=== PATIENT | female | born 1950 | race Caucasian/White ===

== ENCOUNTER → 2024-07-16 17:50 | Outpatient (BNV) | payer MEDICARE, SELFPAY | PROVIDERS: Emergency Provider Emergency Medicine Emergency Medical Services; PCP Pediatrics; Visit Provider Radiology Vascular & Interventional Radiology | DX: R19.7 Diarrhea, unspecified (principal); R14.0 Abdominal distension (gaseous) | CPT/HCPCS: 74177 ==

== ENCOUNTER 2024-12-13 13:50 | Emergency (ER) | payer MEDICARE, SELFPAY ==
--- NOTE | ~2024-12-13 | US_ITS ---
CLINICAL HISTORY: Calf Tenderness; Pain Venous duplex ultrasound left lower extremity COMPARISON: None provided. FINDINGS: The visualized deep veins are fully compressible with normal Doppler color flow and spectral tracings. Left popliteal cyst measuring 1.3 x 1.8 x 0.6 cm. No surrounding hyperemia. IMPRESSION: 1. Negative for left lower extremity deep vein thrombosis. This document has been electronically signed by: Charles Yen MD on 12/13/2024 21:06:04
[2024-12-13 14:02] VITALS: BP 127/62; BP 163/77; PULSE 66; PULSE 74; RESP 16; TEMP 36.5; O2SAT 97; BMI 35.4
[2024-12-13 14:45] VITALS: BP 124/53; PULSE 59; RESP 18; TEMP 36.2; O2SAT 95
--- OUTSIDE RECORDS SUMMARY | 2024-12-13 15:25 | XMS_ITS | Data Portability ---
Author Organization [facility], Main Office Address [address] [place] [address] Care Team Providers Care Advertising Clerk Name Role Phone WON KELLY Primary Care Provider [phone] TAVIA SIMMONS Urologist MARLYN GONSALES Manager Of Change [phone] LEXX RAUSCH German Instructor GRAHAM LR Livestock Commission Agent DEMOND FRIEND Sugar Boiler [phone] NADINE PECK General Surgeon CHAYA HERNÁNDEZ Backend Developer [phone] [facility] Camp Housekeeper SLEEP MEDICINE SERVICES Sleep Medicine CLAUDE BANG General Surgeon JENNIFER MARTINEZ German Instructor ANTONIO BARRON Orthopedic Surgeon MAIKOL BROWNE Camp Housekeeper [phone] [facility] (MIKALA CHAUDHARI) Orthopedic Surgeon GRAHAM LR Electron Beam Photo Mask Technician EFREN CHIU Government Property Inspector Assessment Encounter Date Assessment Date Assessment LastModified by Organization Details LastModified Time 07/29/2024 07/29/2024 This service was provided using telemedicine. Patient consented to video & audio visit Patient was located in the [facility]. Provider was located in the office. No other persons participated in the telemedicine visit except for the patient unless otherwise indicated here. Total time of visit was 17 minutes. wisam Not available 07/29/2024 14:53:55 10/19/2024 10/19/2024 Cellulitis of ri ght upper extremity, likely secondary to arthropod bite -Start Linezolid 600 mg PO BID x 5 days -Selected due to history of C. difficile and multiple drug allergies -Effective coverage for gram-positive organisms (incl. MRSA/strep) -No renal dosing adjustment needed Labs ordered: -CBC with differential and platelets -CRP -ESR -Blood cultures (precautionary) -Tetanus booster not given, Wound was clean and closed -Last Td on 07/02/2018, within 5-year window for non-contaminated wounds Local care: -Borders of erythema outlined for progression tracking -May continue OTC Aloe -Advised patient to avoid topical corticosteroidson the affected area due to concern for local immunosuppressive effects, which may impair healing or worsen cellulitis. Follow-up: Reassess in 1 week or sooner if worsening (fever, expanding erythema, drainage) Patient reassured regarding antibiotic safety and C. diff risk mitigation; anxiety acknowledged and addressed taylor Not available 10/19/2024 17:46:44 Plan of Treatment Reminders Order Date Submit Date Provider Last Modified By Organization Details Last Modified Time Details Appointments [id number] 2024 11:00A M Won Kelly MD Not available Not available Not available Lab CBC w/ auto diff 2024 025 ANTHONY [facility] (Centralized Electronic Ordering - All Locations), Patient Can Go To The Location Of Their Choice, 10/26/2024 08:07:04 culture, blood 2024 025 ANTHONY [facility] (Centralized Electronic Ordering - All Locations), Patient Can Go To The Location Of Their Choice, 10/31/2024 10:05:35 C reactive protein, QN, serum or plasma 2024 025 ANTHONY [facility] (Centralized Electronic Ordering - All Locations), Patient Can Go To The Location Of Their Choice, 10/26/2024 08:07:05 ESR (erythroc yte sedimenta tion rate), blood 2024 025 ANTHONY [facility] (Centralized Electronic Ordering - All Locations), Patient Can Go To The Location Of Their Choice, 10/26/2024 08:07:05 PTH (parathyr oid hormone), intact, serum or plasma 2024 025 ANTHONY [facility] (Centralized Electronic Ordering - All Locations), Patient Can Go To The Location Of Their Choice, 10/18/2024 18:05:43 calcium, ionized, quant ISE, serum or plasma 2024 025 ANTHONY [facility] (Centralized Electronic Ordering - All Locations), Patient Can Go To The Location Of Their Choice, 10/18/2024 18:05:43 vitamin D, 25-hydrox y, total, serum 2024 025 ANTHONY [facility] (Centralized Electronic Ordering - All Locations), Patient Can Go To The Location Of Their Choice, 10/18/2024 18:05:42 CMP, serum or plasma 2024 025 ANTHONY [facility] (Centralized Electronic Ordering - All Locations), Patient Can Go To The Location Of Their Choice, 10/18/2024 18:05:40 urinalysi s, complete 2024 025 ANTHONY [facility] (Centralized Electronic Ordering - All Locations), Patient Can Go To The Location Of Their Choice, 10/18/2024 18:05:41 Referral food service team member & immunolog ist referral - please eval for [facility] and medicine allergies - thank you! 2024 ATHAKIKO Bansal MD, [address] [place] [address]. Allergy, [place], [address], 10/27/2024 13:16:30 Procedures None recorded. Surgeries None recorded. Imaging None recorded. Medication Orders linezolid 600 mg tablet 2024 [id number], [address], [place], [address], 10/31/2024 05:01:07 Patient TargetsNo targets recorded. Patient Instructions Encounter Date Encounter Id Patient Instructions Last Modified By Organization Details Last Modified Time 07/29/2024 [id number] Learning About Clostridioides Difficile (C. diff) Infection wisam Not available 07/29/2024 14:54:12 [facility] follow [facility] visit, all current and discharge medications (OTC, herbal therapies, supplements) reviewed and reconciled with patient and or caregiver, including potential side effects, drug interactions, instructions, and the consequences of not taking medication. Reviewed potential barriers to medication adherence, such as side effects from medication or cost of medication. [email or web address] Not available 07/29/2024 14:22:33 08/15/2024 [id number] low residue diet awychowski Not availab le 08/15/2024 11:28:24 hypercalcemia: care instructions awychowski Not available 08/15/2024 11:28:24 high cholesterol : care instructions awychowski Not available 08/15/2024 11:28:24 high blood pressure: care instructions awychowski Not available 08/15/2024 11:28:24 learning about high blood pressure awychowski Not available 08/15/2024 11:28:24 10/27/2024 [id number] Patient will follow up and keep appointment as scheduled. 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 Referring Physician: Mohit Sellers, Internal Medicine, Encounter Date: 10/27/2024 Results Created Date Observation Date Name Description Value Unit Range Abnormal Flag Note LastModifiedBy Organization Detail LastModifiedTime 10/18/19 25 10/18/2024 COMP. METAB OLIC PANEL (14) glucose 92 mg/dL 70-99 normal Not Available [facility] ([facility]) [address] [place], [address], 10/18/2024 18:05:40 10/18/19 25 10/18/2024 COMP. METAB OLIC PANEL (14) BUN 15 mg/dL 8-27 normal Not Available [facility] ([facility]) [address] [place], [address], 10/18/2024 18:05:40 10/18/19 25 10/18/2024 COMP. METAB OLIC PANEL (14) creatinine 1.02 mg/dL 0.57-1 .00 above high normal Not Available [facility] ([facility]) [address] [place], [address], 10/18/2024 18:05:40 10/18/19 25 10/18/2024 COMP. METAB OLIC PANEL (14) eGFR 57 mL/mi n/1.7 3 >59 below low normal Not Available [facility] ([facility]) [address] [place], [address], 10/18/2024 18:05:40 10/18/19 25 10/18/2024 COMP. METAB OLIC PANEL (14) BUN/creatini ne ratio 15 12-28 normal Not Available [facility] ([facility]) [address] [place], [address], 10/18/2024 18:05:40 10/18/19 25 10/18/2024 COMP. METAB OLIC PANEL (14) sodium 143 mmol/ L 134-14 4 normal Not Available [facility] ([facility]) [address] [place], [address], 10/18/2024 18:05:40 10/18/19 25 10/18/2024 COMP. METAB OLIC PANEL (14) potassium 4.6 mmol/ L 3.5-5. 2 normal Not Available [facility] ([facility]) [address] [place], [address], 10/18/2024 18:05:40 10/18/19 25 10/18/2024 COMP. METAB OLIC PANEL (14) chloride 106 mmol/ L 96-106 normal Not Available [facility] ([facility]) [address] [place], [address], 10/18/2024 18:05:40 10/18/19 25 10/18/2024 COMP. METAB OLIC PANEL (14) carbon dioxide, total 20 mmol/ L 20-29 normal Not Available [facility] ([facility]) [address] [place], [address], 10/18/2024 18:05:40 10/18/19 25 10/18/2024 COMP. METAB OLIC PANEL (14) calcium 10.9 mg/dL 8.7-10 .3 above high normal Not Available [facility] ([facility]) [address] [place], [address], 10/18/2024 18:05:40 10/18/19 25 10/18/2024 COMP. METAB OLIC PANEL (14) protein, total 6.4 g/dL 6.0-8. 5 normal Not Available [facility] ([facility] [address] [place], [address], 10/18/2024 18:05:40 10/18/19 25 10/18/2024 COMP. METAB OLIC PANEL (14) albumin 4.3 g/dL 3.8-4. 8 normal Not Available [facility] ([facility]) [address] [place], [address], 10/18/2024 18:05:40 10/18/19 25 10/18/2024 COMP. METAB OLIC PANEL (14) globulin, total 2.1 g/dL 1.5-4. 5 Not Available [facility] ([facility]) [address] [place], [address], 10/18/2024 18:05:40 10/18/19 25 10/18/2024 COMP. METAB OLIC PANEL (14) bilirubin, total 0.6 mg/dL 0.0-1. 2 normal Not Available [facility] ([facility]) [address] [place], [address], 10/18/2024 18:05:40 05/19/20 25 10/18/2024 COMP. METAB OLIC PANEL (14) alkaline phosphatase 78 IU/L 44-121 normal Not Available [facility]) [address] [place], [address], 10/18/2024 18:05:40 10/18/19 25 10/18/2024 COMP. METAB OLIC PANEL (14) AST (SGOT) 17 IU/L 0-40 normal Not Available [facility] ([facility]) [address] [place], [address], 10/18/2024 18:05:40 10/18/19 25 10/18/2024 COMP. METAB OLIC PANEL (14) ALT (SGPT) 15 IU/L 0-32 normal Not Available [facility] ([facility]) [address] [place], [address], 10/18/2024 18:05:40 10/18/19 25 10/17/2024 URINA LYSIS , COMPL ETE specific gravity 1.009 1.005- 1.030 normal Not Available [facility] ([facility]) [address] [place], [address], 10/18/2024 18:05:41 10/18/19 25 10/17/2024 URINA LYSIS , COMPL ETE pH 6.5 5.0-7. 5 normal Not Available [facility] ([facility]) [address] [place], [address], 10/18/2024 18:05:41 10/18/19 25 10/17/2024 URINA LYSIS , COMPL ETE urine-color YELLOW yellow Not Available [facility] ([facility]) [address] [place], [address], 10/18/2024 18:05:41 10/18/19 25 10/17/2024 URINA LYSIS , COMPL ETE appearance CLEAR clear Not Available [facility] ([facility]) [address] [place], [address], 10/18/2024 18:05:41 10/18/19 25 10/17/2024 URINA LYSIS , COMPL ETE WBC esterase 1+ negati ve abnormal Not Available [facility] ([facility]) [address] [place], [address], 10/18/2024 18:05:41 10/18/19 25 10/17/2024 URINA LYSIS , COMPL ETE protein NEGATI VE negati ve/tra ce Not Available [facility] ([facility]) [address] [place], [address], 10/18/2024 18:05:41 10/18/19 25 10/17/2024 URINA LYSIS , COMPL ETE glucose NEGATI VE negati ve Not Available [facility] ([facility]) [address] [place], [address], 10/18/2024 18:05:41 10/18/19 25 10/17/2024 URINA LYSIS , COMPL ETE ketones NEGATI VE negati ve Not Available [facility] ([facility]) [address] [place], [address], 10/18/2024 18:05:41 10/18/19 25 10/17/2024 URINA LYSIS , COMPL ETE occult blood NEGATI VE negati ve Not Available [facility] ([facility]) [address] [place], [address], 10/18/2024 18:05:41 10/18/19 25 10/17/2024 URINA LYSIS , COMPL ETE bilirubin NEGATI VE negati ve Not Available [facility] ([facility]) [address] [place], [address], 10/18/2024 18:05:41 10/18/19 25 10/17/2024 URINA LYSIS , COMPL ETE urobilinogen ,semi-qn 0.2 mg/dL 0.2-1. 0 normal Not Available [facility] ([facility]) [address] [place], [address], 10/18/2024 18:05:41 10/18/19 25 10/17/2024 URINA LYSIS , COMPL ETE nitrite, urine NEGATI VE negati ve Not Available [facility] ([facility]) [address] [place], [address], 10/18/2024 18:05:41 10/18/19 25 10/17/2024 URINA LYSIS , COMPL ETE microscopic examination SEE BELOW: Micro scopi c was indic ated and was perfo rmed. Not Available [facility] ([facility]) [address] 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) [address] [place], [address], 10/18/2024 18:05:41 10/18/19 25 10/18/2024 URINA LYSIS , COMPL ETE WBC 0-5 /hpf 0 - 5 Not Available [facility] ([facility]) [address] [place], [address], 10/18/2024 18:05:41 10/18/19 25 10/18/2024 URINA LYSIS , COMPL ETE RBC NONE SEEN /hpf 0 - 2 Not Available [facility] ([facility]) [address] [place], [address], 10/18/2024 18:05:41 10/18/19 25 10/18/2024 URINA LYSIS , COMPL ETE epithelial cells (non renal) 0-10 /hpf 0 - 10 Not Available [facility] (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) [address] [facility], [place], [address], 10/18/2024 18:05:41 10/18/19 25 10/18/2024 URINA LYSIS , COMPL ETE casts NONE SEEN /lpf none seen Not Available [facility] ([facility]) [address] 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) [address] 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) [address] 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 [address] 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) [address] [facility], [place], [address], 10/18/2024 18:05:41 10/18/19 25 10/18/2024 URINA LYSIS , COMPL ETE bacteria NONE SEEN none seen/f ew Not Available [facility] ([facility]) [address] 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) [address] [place], [address], 10/18/2024 18:05:41 10/18/19 25 10/18/2024 VITAM IN D, 25-HY DROXY vitamin D, 25-hydroxy 20.7 NG/mL 30.0-1 00.0 below low normal Vitam in D defic iency has been defin ed by the Insti tute of Medic ine and an Endoc rine Socie ty pract ice guide line as a level of serum 25-OH vitam in D less than 20 ng/mL (1,2) . The Endoc rine Socie ty went on to [facility] er defin e vitam in D insuf ficie ncy as a level betwe en 21 and 29 ng/mL (2). 1. IOM (Inst itute of Medic ine). 2009. Dieta ry refer ence intak es for calci um and D. Risa cooper [place]: The [facility] . 2. Jignesh polanco MF, Chavez santiago [place], Luis Daniel off-F errar i CABRAL, et al. Evalu ation , treat ment, and preve ntion of vitam in D defic iency : an Endoc rine Socie ty clini caprice pract ice guide line. JCEM. 2010; 96(7) :1911 -30. Not Available [facility] ([facility]) [address] [place], [address], 10/18/2024 18:05:42 10/18/19 25 10/18/2024 CALCI UM, IONIZ ED, SERUM calcium, ionized, serum 5.8 mg/dL 4.5-5. 6 above high normal Not Available [facility] ([facility]) [address] [place], [address], 10/18/2024 18:05:43 10/18/19 25 10/18/2024 PTH, INTAC T PTH, intact 77 pg/mL 15-65 above high normal Not Available [facility] ([facility]) [address] [place], [address], 10/18/2024 18:05:43 10/26/19 25 10/26/2024 CBC WITH DIFFE RENTI AL/PL ATELE T WBC 5.2 x10e3 /uL 3.4-10 .8 normal Not Available [facility] ([facility]) [address] [place], [address], 10/26/2024 08:07:04 10/26/19 25 10/26/2024 CBC WITH DIFFE RENTI AL/PL ATELE T RBC 3.77 x10e6 /uL 3.77-5 .28 normal Not Available [facility] ([facility]) [address] [place], [address], 10/26/2024 08:07:04 10/26/19 25 10/26/2024 CBC WITH DIFFE RENTI AL/PL ATELE T hemoglobin 11.6 g/dL 11.1-1 5.9 normal Not Available [facility] ([facility]) [address] [place], [address], 10/26/2024 08:07:04 10/26/19 25 10/26/2024 CBC WITH DIFFE RENTI AL/PL ATELE T hematocrit 34.8 % 34.0-4 6.6 normal Not Available [facility] ([facility]) [address] [facility], [place], [address], 10/26/2024 08:07:04 10/26/1910/26/2024 CBC WITH DIFFE RENTI AL/PL ATELE T MCV 92 fL 79-97 normal Not Available [facility] ([facility]) [address] [facility], [place], [address], 10/26/2024 08:07:04 10/26/1910/26/2024 CBC WITH DIFFE RENTI AL/PL ATELE T MCH 30.8 pg 26.6-3 3.0 normal Not Available [facility] ([facility]) [address] [facility], [place], [address], 10/26/2024 08:07:04 10/26/1910/26/2024 CBC WITH DIFFE RENTI AL/PL ATELE T MCHC 33.3 g/dL 31.5-3 5.7 normal Not Available [facility] ([facility]) [address] [facility], [place], [address], 10/26/2024 08:07:04 10/26/1910/26/2024 CBC WITH DIFFE RENTI AL/PL ATELE T RDW 12.5 % 11.7-1 5.4 Not Available [facility] ([facility]) [address] [place], [address], 10/26/2024 08:07:04 10/26/1910/26/2024 CBC WITH DIFFE RENTI AL/PL ATELE T platelets 268 x10e3 /uL 150-45 0 normal Not Available [facility] ([facility]) [address] [place], [address], 10/26/2024 08:07:04 10/26/1910/26/2024 CBC WITH DIFFE RENTI AL/PL ATELE T neutrophils 72 % not estab. normal Not Available [facility] ([facility]) [address] [place], [address], 10/26/2024 08:07:04 10/26/19 25 10/26/2024 CBC WITH DIFFE RENTI AL/PL ATELE T lymphs 20 % not estab. normal Not Available [facility] ([facility]) [address] [facility], [place], [address], 10/26/2024 08:07:04 10/26/19 25 10/26/2024 CBC WITH DIFFE RENTI AL/PL ATELE T monocytes 6 % not estab. normal Not Available [facility] ([facility]) [address] [facility], [place], [address], 10/26/2024 08:07:04 10/26/19 25 10/26/2024 CBC WITH DIFFE RENTI AL/PL ATELE T eos 1 % not estab. normal Not Available [facility] ([facility]) [address] [facility], [place], [address], 10/26/2024 08:07:04 10/26/19 25 10/26/2024 CBC WITH DIFFE RENTI AL/PL ATELE T basos 1 % not estab. normal Not Available [facility] ([facility]) [address] 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) [address] [facility], [place], [address], 10/26/2024 08:07:04 10/26/1910/26/2024 CBC WITH DIFFE RENTI AL/PL ATELE T neutrophils (absolute) 3.8 x10e3 /uL 1.4-7. 0 normal Not Available [facility] ([facility]) [address] [place], [address], 10/26/2024 08:07:04 10/26/19 25 10/26/2024 CBC WITH DIFFE RENTI AL/PL ATELE T lymphs (absolute) 1.0 x10e3 /uL 0.7-3. 1 normal Not Available [facility] ([facility]) [address] [facility], [place], [address], 10/26/2024 08:07:04 10/26/19 25 10/26/2024 CBC WITH DIFFE RENTI AL/PL ATELE T monocytes(ab solute) 0.3 x10e3 /uL 0.1-0. 9 normal Not Available [facility] ([facility]) [address] [place], [address], 10/26/2024 08:07:04 10/26/19 25 10/26/2024 CBC WITH DIFFE RENTI AL/PL ATELE T eos (absolute) 0.0 x10e3 /uL 0.0-0. 4 normal Not Available [facility] ([facility]) [address] [facility], [place], [address], 10/26/2024 08:07:04 10/26/19 25 10/26/2024 CBC WITH DIFFE RENTI AL/PL ATELE T baso (absolute) 0.0 x10e3 /uL 0.0-0. 2 normal Not Available [facility] ([facility]) [address] [place], [address], 10/26/2024 08:07:04 10/26/1910/26/2024 CBC WITH DIFFE RENTI AL/PL ATELE T immature granulocytes 0 % not estab. Not Available [facility] ([facility]) [address] [place], [address], 10/26/2024 08:07:04 10/26/19 25 10/26/2024 CBC WITH DIFFE RENTI AL/PL ATELE T immature grans (abs) 0.0 x10e3 /uL 0.0-0. 1 Not Available [facility] ([facility]) [address] 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) [address] 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) [address] [facility], [place], [address], 10/26/2024 08:07:04 10/26/19 25 10/26/2024 SEDIM ENTAT ION RATE- WESTE RGREN sedimentatio n rate-westerg desiree 12 mm/HR 0-40 normal Not Available [facility] ([facility]) [address] [facility], [place], [address], 10/26/2024 08:07:05 10/26/19 25 10/26/2024 C-DORA CTIVE PROTE IN, QUANT C-reactive protein, quant 3 mg/L 0-10 normal Not Available [facility] ([facility]) [address] [facility], [place], [address], 10/26/2024 08:07:05 10/26/19 25 10/31/2024 BLOOD CULTU SELENA ROA blood culture, routine Final report Not Available [facility] ([facility]) [address] [facility], [place], [address], 10/31/2024 10:05:35 10/26/19 25 10/31/2024 BLOOD CULTU SELENA ROA result 1 COMMEN T No aerob ic or anaer obic growt h in five days. Not Available [facility] ([facility]) [address] [facility], [place], [address], 10/31/2024 10:05:35 07/16/19 25 07/16/2024 CT, abdom en + pelvi s, w/ contr ast No observ ation record ed. wisam [facility] (Medical Records) [address] [place], [address], 07/18/2024 13:00:13 07/16/19 25 07/16/2024 CT, abdom en + pelvi s, w/ contr ast No observ ation record ed. [facility] (Medical Records) [address] [place], [address], 07/23/2024 14:17:58 Result Notes None recorded. Problems Name Problem SNOMED Code Status Onset Date Resolution Date Notes Provider Name and Address Organization Details Recorded Time Patient status finding [id number] Completed 201201/09/2014 RECORDED 10/28/19 13 11:22AM BY DANNA WEBBER MA, ANNOTATI ON/PATRICK Kelly MD [address] [facility] [address], [place], [phone] , [facility] 6 17:10:55 Constipa tion [id number] Completed 201307/05/2019 Won Kelly MD [address] [facility] [address], [place], [phone] , [facility] 0 13:39:59 Epistaxi s Completed 201201/09/2014 RECORDED 10/28/19 13 11:22AM BY DANNA WEBBER MA, CIELO ON/PATRICK Kelly MD [address] [facility] [address], [place], [phone] , [facility] 6 17:10:55 Adult health examinat ion Completed 201201/09/2014 IMPRESSI ON: IMMUNIZA TION STATUS UT SHORT OF INFLUENZ A WHICH PT DECLINES . SCREENIN G IS CURRENT BASED ON RISK FACTORS. [facility] USE ADVISED. DISTRACT ED DRIVING TONYE Mary; RECORDED 07/20/19 13 2:13PM BY DANNA WEBBER MA, ANNOTATI ON/PATRICK Kelly MD [address] [facility] [address], [place], [address] , [facility] 6 17:10:55 Laborato ry procedur e performe d [id number] Completed 201201/09/2014 RECORDED 05/11/20 13 9:58AM BY DANNA WEBBER MA, ANNOTCHAMP ON/ADDEN DUM Won Kelly MD [address] [address], [place], [address] , [facility] 6 17:10:55 Screenin g for malignan t neoplasm of breast Completed 201201/09/2014 RECORDED 10/28/19 13 11:22AM BY DANNA WEBBER MA, CIELO ON/PATRICK DUM Won Kelly MD [address] [address], [place], [address] , [facility] 6 17:10:55 Infectio mononucl eosis [id number] Completed 201201/09/2014 RECORDED 10/28/19 13 11:22AM BY DANNA WEBBER MA, CIELO ON/PATRICK Kelly MD [address] [address], [place], [address] , [facility] 6 17:10:55 Immuniza tion refused Completed 201301/09/2014 RECORDED 09/13/19 14 10:02AM BY DANNA WEBBER MA, CIELO ON/PATRICK Kelly MD [address] [address], [place], [address] , [facility] 6 17:10:55 Active or passive immuniza tion Completed 201301/09/2014 RECORDED 09/13/19 14 10:50AM BY WON Kwong MD, OFFICE VISIT Won Kelly MD [address], [place], [address] , [facility] 6 17:10:55 Hernia of anterior abdomina l wall 460913270 Completed 201306/05/2016 Removal Reason: s/p surgery Won Kelly MD [address], [place], [address] , [facility] 7 10:47:16 Administ ration of viral vaccine Completed 201301/09/2014 RECORDED 09/13/19 14 10:02AM BY DANNA WEBBER MA, ANNOTATI ON/ADDEN DUM Won Kelly MD [address], [place], [address] , [facility] 6 17:10:55 Arthropa thy 125950771 Completed 201307/02/2018 Won Kelly MD [address], [place], [address] , [facility] 9 11:00:14 Patient status finding [id number] Completed 201212/13/2013 RECORDED 10/28/19 13 11:22AM BY DANNA WEBBER MA, ANNOTATI ON/ADDEN DUM Won Kelly MD [address], [place], [address] , [facility] 6 17:10:55 Backache 194855981 Active 2013 KANDY Go [facility] 3 10:21:28 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 Active 2013 STORY: ADENOMA- XENA KANDY Go [facility] 3 10:21:29 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 SCREENIN G IS CURRENT BASED ON RISK FACTORS. REGULAR DENTAL CARE AND SEATBELT USE ADVISED. DISTRACT ED DRIVING DISCUSSLudivina DBrigitte; RECORDED 07/20/19 13 2:13PM BY DANNA WEBBER MA, ANNOTATI ON/PATRICK Kelly MD [address], [place], [address] , [facility] 6 17:10:55 Gastroes ophageal reflux disease 743147110 Active 2013 KANDY Go, [facility] 3 10:21:28 Headache 89029401 Completed 201307/02/2018 Won Kelly MD [address], [place], [address] , [facility] 9 10:59:43 Pure hypercho lesterol emia 952459654 Active 2013 Not Available [facility] 17:47:40 Hyperpar athyroid ism 84212576 Active 2013 Not Available [facility] 1 17:47:40 Essentia l hyperten zulema 68551680 Active 2013 Not Available [facility] 1 17:47:40 Demarcus l hyperten zulema 37148029 Completed 201212/13/2013 IMPRESSI ON: FINALLY WELL CONTROLL ED AND REGIMEN IS WELL TOLERATE D. WILL CONTINUE .; RECORDED 10/28/19 13 11:22AM BY DANNA WEBBER MA, DORETHAATI ON/ADDEN DUM Won Kelly MD [address], [place], [address] , [facility] 7 10:47:03 Laborato ry procedur e performe d [id number] Completed 201212/13/2013 RECORDED 05/11/20 13 9:58AM BY DANNA WEBBER MA, ANNOTATI ON/PATRICK DUM Won Kelly MD [address] [facility] [address], [place], [address] , [facility] 6 17:10:55 Screenin g for malignan t neoplasm of breast Completed 201212/13/2013 RECORDED 10/28/19 13 11:22AM BY DANNA WEBBER MA, CIELO ON/PATRICK DUM Won Kelly MD [address] [facility] [address], [place], [address] , [facility] 6 17:10:55 Infectio mononucl eosis 278168388 Completed 201212/13/2013 RECORDED 10/28/19 13 11:22AM BY DANNA WEBBER MA, ANNOTATI ON/ADDEN DUM Won Kelly MD [address] [facility] [address], [place], [address] , [facility] 6 17:10:55 Patient status finding [id number] Completed 201311/20/2014 RECORDED 09/13/19 14 10:10AM BY DANNA WEBBER MA, OFFICE VISIT Won Kelly MD [address] [address], [place], [address] , [facility] 6 17:10:55 Obesity 223290298 Completed 201306/05/2016 IMPRESSI ON: PT UNDERSTA NDS POTENTIA L BELL HOLE DIGGER HEALTH CONSEQUE NCES. NEEDS TO INCREASE PHYSICAL ACTIVITY AND EAT HEALTHIE R. WILL FOLLOW.; RECORDED 09/13/19 14 10:06AM BY DANNA WEBBER MA, OFFICE VISIT Won Kelly MD [address] [address], [place], [address] , [facility] 7 10:44:36 Obstruct stephanie sleep apnea syndrome 04667148 Active [address] [place] [facility] 3 10:21:29 Immuniza tion refused Completed 201312/13/2013 RECORDED 09/13/19 14 10:02AM BY DANNA WEBBER MA, ANNOTATI ON/PATRICK Kelly MD [address] [address], [place], [address] , [facility] 6 17:10:55 Active or passive immuniza tion Completed 201312/13/2013 RECORDED 09/13/19 14 10:50AM BY WON Kwong MD, OFFICE VISIT Won Kelly MD [address] [address], [place], [address] , [facility] 6 17:10:55 Vitamin D deficien cy 49427028 Active 2013 Not Available [facility] 1 17:47:40 Administ ration of viral vaccine Completed 201312/13/2013 RECORDED 09/13/19 14 10:02AM BY ADNNA WEBBER MA, ANNOTATI ON/ADDCHANTE Kelly MD [address] [address], [place], [address] , [facility] 6 17:10:55 Body mass index 30+ - obesity 370180566 Completed 11/20/2014 Won Kelly MD [address], [place], [address] , [facility] 6 17:10:55 Mensamantha sorto present 694295827 Completed 11/20/2014 Won Kelly MD [address], [place], [address] , [facility] 6 17:10:55 Chronic depressi on 757480205 Completed 07/23/2020 Won Kelly MD [address] [facility] [address], [place], [address] , [facility] 1 09:53:09 Sinusiti s 39668070 Completed 11/20/2014 Won Kelly MD [address] [facility] [address], [place], [address] , [facility] 6 17:10:55 Knee pain Completed 07/01/2017 Won Kelly MD [address], [place], [address] , [facility] 8 10:33:04 Osteoart hritis 997685844 Active KANDY Go, [facility] 3 10:21:28 Increase d frequenc y of urinatio n 991774594 Completed 01/12/2019 KANDY Wynne, [facility] 9 10:54:37 Pyuria 9185026 Completed 06/05/2016 Won Kelly MD [address] [facility] [address], [place], [address] , [facility] 7 10:44:43 Albuminu rekha 310122427 Completed 07/01/2017 Won Kelly MD [address] [facility] [address], [place], [address] , [facility] 8 10:34:48 Degenera tion of lumbar interver tebral disc 12120954 Active 2015 mod/kyle re L2/L3, L4/L5 KANDY Go, [facility] 3 10:21:28 Osteoart hritis of knee 682435019 Active 2015 mod/kyle re KANDY Go, [facility] 3 10:21:28 Disorder of patellof emoral joint 426665237 Active KANDY Go, [facility] 3 10:21:28 Kidney stone 29693657 Active 2016 Not Available [facility] 1 17:47:40 Divertic ular disease 953307018 Active 2016 KANDY Go, [facility] 3 10:21:28 Pyelonep hritis 11985084 Completed 201707/02/2018 Won Kelly MD [address], [place], [address] , [facility] 9 10:59:01 Hydronep hrosis 10174923 Completed 201707/02/2018 Won Kelly MD [address] [address], [place], [address] , [facility] 9 10:59:06 Diastoli c dysfunct ion 6468395 Active 2017 Not Available [facility] 1 17:47:40 Aortic valve regurgit ation 94370421 Active 2017 KANDY Go, [facility] 3 10:21:29 Mitral valve regurgit ation 38862712 Active 2017 KANDY Go, [facility] 3 10:21:29 History of total hysterec aretha 742254854 Active RevaKANDY Campbell, [facility] 3 10:21:28 Lumbar spondylo sis 183773005 Active 2017 KANDY Go, [facility] 3 10:21:28 Lactose intolera nce Active KANDY Go, [facility] 3 10:21:28 Abnormal liver function 56756889 Active 2018 RevaKANDY Bailey, [facility] 3 10:21:29 Hypercal cemia 20535770 Active 2018 [facility] Available [facility] 1 17:47:40 Divertic ulitis 855360999 Completed 201804/12/2024 Won Kelly MD [address] [address], [place], [address] [facility] 4 11:22:34 Suspecte d bilatera l glaucoma 01375135525 087545 Active 2018 KANDY Go, [facility] 3 10:21:28 Excess skin of bilatera l eyelids 10027438760 630738 Active 2018 KANDY Go [facility] 3 10:21:28 Recurren t major depressi on in partial remissio n 82718747 Active 2019 KANDY Go [facility] 3 10:21:28 Synovial cyst of knee 164812769 Active 2019 KANDY Go [facility] 3 10:21:28 History of noncompl iance with medicati on regimen 957683658 Active 2019 KANDY Go, [facility] 3 10:21:29 Chronic kidney disease stage 2 257386215 Completed 202009/27/2020 KANDY Go, [facility] 3 10:21:29 Osteopor osis 21067250 Completed 202002/04/2023 Won Kelly MD [address] [address], [place], [address] , [facility] 3 09:31:10 Irritabl e bowel syndrome 32528486 Active 2021 KANDY Go, [facility] 3 10:21:28 Non-heal ing pigmente d skin lesion 414797989 Active 2021 KANDY Go, [facility] 3 10:21:28 Hyperten zulema monitori ng status 507640944 Active 2021 enrolled KANDY Go, [facility] 3 10:21:28 Hyperten zulema monitori ng status 302748416 Active 2021 enrolled KANDY Go, [facility] 3 10:21:28 Bilatera l trochant lilia bursitis 64911430998 226132 Active 2022 Won Kelly MD [address] [address], [place], [address] , [facility] 3 12:02:13 Osteopen ia 592006491 Active 2022 Won Kelly MD [address] [address], [place], [address] , [facility] 3 09:31:19 Abdomina l pain 22158994 Completed 202207/09/2023 Won Kelly MD [address] [place], [address] , [facility] 4 10:44:25 Divertic ulitis of colon 748553888 Active 2022 ROLDAN Red [address] [facility] [address], [place], [address] , [facility] 3 11:26:18 Factor V Leiden mutation 358786437 Active 2023 Won eKlly MD [address] [facility] [address], [place], [address] , [facility] 4 17:25:58 Cyst of kidney 728754417 Active 2023 right Won Kelly MD [address] [facility] [address], [place], [address] , [facility] 4 16:05:21 Family history of hypercoa gulable state 13582258896 9102 Active 2023 Won Kelly MD [address], [place], [address] , [facility] 4 16:45:07 Chronic constipa tion 257620318 Active 2023 Mohit Sellers PA-C [address] [facility] [address], [place], [address] , [facility] 4 13:50:36 History of right total knee replacem ent 39641216844 32989 Active 2023 Won Kelly MD [address], [place], [address] , [facility] 4 11:14:55 Arterios clerotic vascular disease 31359738 Active 2024 Won Kelly MD [address] 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 [address], [place], [address] , [facility] 5 14:48:34 Clostrid ium difficil e colitis 465112969 Completed 202408/15/2024 Won Kelly MD [address] 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 [address], [place], [address] , [facility] 5 15:05:13 Problem Notes None recorded. Procedures Surgical History Date Name Laterality Status Provider Name and Address Organization Details Recorded Time 025 injection of knee joint completed Won Kelly MD [address] [address], [place], [address], [facility] 09/28/2024 07:30:13 024 biopsy of vulva completed Won Kelly MD [address] [address], [place], [address], [facility] 04/10/2024 17:13:23 024 Most Recent Mammogram completed Loida Arguelles [facility] 02/11/2024 12:11:25 024 total replacement of right knee joint completed Janie Epstein [facility] 09/21/2023 08:03:24 024 Advanced Care Planning completed Won Kelly MD [address], [address], [facility] 07/13/2023 11:24:19 023 Mammogram Diagnostic Bilateral completed Barbielynette Pierre [facility] 02/04/2023 09:29:51 023 Most Recent Bone Density completed [facility] 12/07/2023 10:44:12 023 Dxa bone density ady vrt fx completed [facility] 12/07/2023 10:43:24 023 Advanced Care Planning completed Won Kelly MD [address], [address], [facility] 11/27/2022 11:11:33 023 injection of bilateral knee joints completed Won Kelly MD [address], [address], [facility] 11/02/2022 22:20:08 022 injection of bilateral knee joints completed Won Kelly MD [address], [address], [facility] 01/07/2022 14:38:46 021 injection of bilateral knee joints completed Won Kelly MD [address], [address], [facility] 03/21/2021 23:42:59 021 Advanced Care Planning completed Won Kelly MD [address], [address], [facility] 07/23/2020 10:23:35 021 Six-Item Cognitive Test completed Danna Webber [facility] 07/23/2020 09:41:32 020 Mini-Cog Test completed Danna Webber MA [facility] 07/05/2019 13:18:16 020 Advanced Care Planning completed Won Kelly MD [address], [address], [facility] 07/05/2019 13:38:50 019 Mini-Cog Test completed Danna Webber MA [facility] 07/02/2018 10:46:20 018 Dxa bone density ady vrt fx completed Elena garcia [facility] 11/24/2017 11:40:04 018 Echo transthoracic completed Won Kelly MD [address], [address], [facility] 11/23/2017 09:26:22 018 Cystourethroscopy completed Karie Oliveros [facility] 11/06/2017 10:38:47 018 Fall Risk Assessment completed Danna Webber [place] [facility] 07/01/2017 10:14:33 018 Mini-Cog Test completed Won Kelly MD [address], [address], [facility] 07/01/2017 10:40:36 017 Date of Last Colonoscopy completed Danna Webber MA [facility] 07/01/2017 10:10:09 017 Egd diagnostic brush wash completed Won Kelly MD [address], [address], [facility] 08/20/2016 21:57:12 017 Colonoscopy completed Won Kelly MD [address], [address], [facility] 08/20/2016 21:59:31 017 Fall Risk Assessment completed Danna Webber [place] [facility] 06/05/2016 10:20:18 017 Mini-Cog Test completed Danna Webber [facility] 06/05/2016 10:21:39 014 Fall Risk Assessment completed Danna Webber [facility] 05/17/2014 14:20:39 014 Mini-Cog Test completed Danna Webber [facility] 05/17/2014 14:20:39 014 Hernia Repair completed Won Kelly MD [address] [facility], [place], [address], [facility] 02/14/2014 16:52:55 013 completed Danna Webber [facility] 03/15/2014 10:28:41 996 Cholecystectomy completed Won Kelly MD [address] [facility] [address], [place], [address], [facility] 07/05/2019 13:35:13 992 Total hysterectomy completed Elena garcia MA [facility] 04/05/2020 09:22:47 Breast reduction completed Elena garcia [facility] 04/05/2020 09:22:27 Imaging Results None recorded. Procedure Notes None recorded. Medical Equipment None Reported. Allergies Allergen ID Allergen Name Allergen Category Reaction Reaction Severity Criticality Documentation Date Start Date Code Code System Note Provider Name and Address Organization Details Recorded Time 71376 gabapenti n medicatio n Not available Not available Not available 02/01/20142019 10955 RxNorm Staci Heath clement [facility] 14:13:31 84863 tramadol medicatio n Not available Not available Not available 02/01/20142019 25915 RxNorm Staci Heath null, [facility] 1 14:13:31 doxycycli ne Not available other Not available Not available 08/28/20142014 3640 RxNorm KANDY Puri, [facility] 2 10:24:14 35958 hydrochlo rothiazid e medicatio n other severe Not available 07/01/20162016 5487 RxNorm KANDY Puri, [facility] 2 10:24:14 67616 rosuvasta tin medicatio n other moderate Not available 03/04/20172019 35361 2 RxNorm Staci vaughan, [facility] 1 14:13:31 59066 levofloxa mine medicatio n other rash Not available Not available Not available 10/27/20172018 86411 RxNorm Staci vaughan, [facility] 1 14:13:31 36743 sulfaceta mide medicatio n Not available Not available Not available 02/25/20182019 86645 RxNorm Staci vaughan [facility] 1 14:13:31 31133 oxycodone medicatio n other severe Not available 04/27/20182019 7804 RxNorm KANDY Puri [facility] 2 10:24:14 04993 amlodipin e medicatio n other moderate Not available 07/02/20182019 82552 RxNorm Staci vaughan [facility] 1 14:13:31 51222 lactose food,medi cation diarrhea other Not available Not available Not available 01/12/20192019 6211 RxNorm Staci vaughan, [facility] 1 14:13:31 37586 diltiazem Not available other Not available Not available 03/24/20202019 3443 RxNorm Staci Heath null, [facility] 14:13:31 13016 metronida zole medicatio n other Not available Not available 04/05/20202019 6922 RxNorm Staci Heath null, [facility] 14:13:31 49827 cefadroxi l medicatio n Not available Not available Not available 12/20/20202019 2177 RxNorm Staci Heath null, [facility] 14:13:31 69456 amitripty line medicatio n Not available Not available Not available 12/20/20202019 704 RxNorm Staci Heath null, [facility] 14:13:31 21622 aluminum aspirin Not available Not available Not available Not available 12/20/20202013 611 RxNorm Staci Heath null, [facility] 1 14:13:31 81690 lisinopri l medicatio n other Not available Not available 12/20/20202013 04331 RxNorm Kalyn Almonte LPN null, [facility] 5 14:24:45 15106 spironola ctone medicatio n Not available Not available Not available 12/20/20202019 9997 RxNorm Staci Heath null, [facility] 1 14:13:31 30471 Miralax medicatio n nausea Not available Not available 12/07/2023 96364 5 RxNorm cramp s, bloat KANDY Méndez, [facility] 4 10:38:09 4724 aspirin medicatio n Not available Not available Not available 12/13/20132013 1191 RxNorm epist axis Elena Kye jones [place] null, [facility] 4 13:12:40 4725 lisinopri l medicatio n cough Not available Not available 12/13/20132013 52084 RxNorm KANDY Sanabria, [place] - [facility] 4 13:12:40 Medications Name Sig Start Date Stop Date Status Note LastModified by Organization Details LastModified Time losartan 50 mg tablet TAKE 1 TABLET BY MOUTH EVERY DAY IN THE EVENING active Not Available Not Available No t Available nifedipin e ER 30 mg tablet,ex tended release 24 hr 03/29 completed Not Available Not Available Not Available amoxicill in 500 mg capsule 4 PILLS 1 HOUR PRIOR TO DENTAL APPT active Not Available Not Available No t Available hydralazi ne 10 mg tablet TAKE 1 TABLET BY MOUTH THREE TIMES A DAY NEEDED DIRECTED 06/21 completed Not Available Not Available Not Available Colace 100 mg capsule Take 2 capsules every day by oral route as needed. active Not Available Not Available No t Available clonidine 0.1 mg/24 hr weekly transderm al patch Apply 1 patch every week by transder mal route as directed for 30 days. 04/20 completed Not Available Not Available Not Available clindamyc in HCl 300 mg capsule TAKE 1 CAPSULE (300 MG) BY ORAL ROUTE 3 TIMES DAILY 07/29 completed Not Available Not Available Not Available Vitamin C 500 mg tablet Take 1 tablet every day by oral route. active Not Available Not Available No t Available amoxicill in 125 mg chewable tablet Chew 1 tablet every 8 hours by oral route. 07/25 completed Not Available Not Available Not Available azithromy mine 250 mg tablet 12/09 completed Not Available Not Available Not Available ibuprofen 800 mg tablet TAKE 1 TABLET BY MOUTH TWICE A DAY NEEDED FOR PAIN active Not Available Not Available No t Available diltiazem CD 180 mg capsule,e xtended release 24 hr Take 1 capsule every day by oral route for 30 days. 03/24 completed Not Available Not Available Not Available diltiazem CD 240 mg capsule,e xtended release 24 hr Take 1 capsule every day by oral route for 90 days. 02/14 completed Not Available Not Available Not Available prednison e 20 mg tablet Take 2 tablets every day by oral route for 5 days. 11/01 completed Not Available Not Available Not Available clonazepa m 0.5 mg tablet Take 1 tablet every day by oral route for 10 days. 05/12 completed Not Available Not Available Not Available moxifloxa mine 400 mg tablet Take 1 tablet every day by oral route for 10 days. 02/18 completed Not Available Not Available Not Available hydralazi ne 25 mg tablet Take 1 tablet 3 times a day by oral route for 90 days. 08/14 completed Not Available Not Available Not Available metronida zole 500 mg tablet Take 1 tablet every 8 hours by oral route for 10 days. 04/11 completed Not Available Not Available Not Available nifedipin e ER 30 mg tablet,ex tended release Take 1 tablet every day by oral route as directed . 04/03 completed Not Available Not Available Not Available acetamino phen 300 mg-codein e 30 mg tablet TAKE 1 TABLET BY MOUTH EVERY 6 HOURS NEEDED FOR 7 DAYS 04/13 completed Not Available Not Available Not Available ciproflox acin 250 mg tablet Take 1 tablet every 12 hours by oral route for 5 days. active Not Available Not Available No t Available amlodipin e 5 mg tablet TAKE 1 TABLET BY MOUTH EVERY DAY 07/02 completed Not Available Not Available Not Available omeprazol e 40 mg capsule,d elayed release Take 1 capsule every day by oral route for 30 days. active Not Available Not Available No t Available spironola ctone 25 mg tablet Take 0.5 tablets every day by oral route. 02/23 completed Not Available Not Available Not Available vancomyci n 125 mg capsule TAKE 1 CAPSULE BY MOUTH EVERY 6 HOURS 07/29 completed Not Available Not Available Not Available acetamino phen ER 650 mg tablet,ex tended release Take 2 tablets every 8 hours by oral route as needed. 04/27 completed Not Available Not Available Not Available oxycodone -acetamin ophen 5 mg-325 mg tablet 02/06 completed Not Available Not Available Not Available doxazosin 8 mg tablet Take 1 tablet every day by oral route at bedtime. 11/21 completed Not Available Not Available Not Available magnesium oxide 400 mg (241.3 mg magnesium ) tablet Take 1 tablet every day by oral route. active Not Available Not Available No t Available Vitamin C 1,000 mg tablet Take 1 tablet every day by oral route. 11/27 completed Not Available Not Available Not Available linezolid 600 mg tablet Take 1 tablet every 12 hours by oral route for 5 days. 10/31 completed Not Available Not Available Not Available diltiazem ER 120 mg capsule,2 4 hr,extend ed release Take 1 capsule every day by oral route for 90 days. 11/01 completed Not Available Not Available Not Available Mapap (acetamin ophen) 500 mg capsule TAKES 2 CAPSULES IN AFTERNOO N AND TAKES 2-3 AT BEDTIME NEEDED. active Not Available Not Available No t Available amlodipin e 10 mg tablet TAKE 1/2 TABLET BY MOUTH EVERY DAY 5MG ON BACKORDE R 10/27 completed Not Available Not Available Not Available valsartan 320 mg tablet Take 1 tablet every day by oral route. 09/06 completed Not Available Not Available Not Available losartan 25 mg tablet TAKE 4 TABLETS BY MOUTH EVERY DAY FOR 30 DAYS 11/02 completed Not Available Not Available Not Available hydrochlo rothiazid e 12.5 mg capsule Take 1 capsule every day by oral route for 30 days. 07/01 completed Not Available Not Available Not Available Vitamin B-6 100 mg tablet Take 1 tablet every day by oral route. 07/29 completed Not Available Not Available Not Available Edecrin 25 mg tablet Take 1 tablet every day by oral route for 30 days. 09/04 completed Not Available Not Available Not Available omeprazol e 20 mg capsule,d elayed release TAKE 1 CAPSULE BY MOUTH EVERY DAY active Not Available Not Available No t Available doxazosin 4 mg tablet TAKE 2 TABLETS (8 MG TOTAL) BY MOUTH EVERY NIGHT 10/19 completed Not Available Not Available Not Available folic acid 1 mg tablet 1 mg by oral route. 10/02 completed Not Available Not Available Not Available hydroxyzi ne HCl 25 mg tablet TAKE 1 TABLET EVERY DAY BY ORAL ROUTE NEEDED. 08/15 completed 08/15/24 per patient did not take and requeste d to remove from med list Not Available Not Available Not Available hydralazi ne 50 mg tablet TAKE 1 TABLET BY MOUTH THREE TIMES A DAY active Not Available Not Available No t Available furosemid e 20 mg tablet Take 1 tablet every day by oral route for 30 days. 04/27 completed Not Available Not Available Not Available ibuprofen 600 mg tablet THREE TIMES DAILY, NEEDED 05/11 completed RECORDED 05/11/20 13 10:52AM BY WON Kwong MD, ANNOTATI ON/PATRICK DANIELSON; Not Available Not Available Not Available levofloxa mine 500 mg tablet Please specify directio ns, refills and quantity active Not Available Not Available No t Available levofloxa mine 750 mg tablet Take 1 tablet every day by oral route. 03/01 completed Not Available Not Available Not Available ketoconaz ole 2 % topical cream APPLY TO THE AFFECTED AREA(S) BY TOPICAL ROUTE ONCE DAILY FOR 2-3 WEEKS NEEDED active Not Available Not Available No t Available losartan 100 mg tablet TAKE 1 TABLET BY MOUTH (100MG) DAILY IN ADDITION TO THE 50MG active Not Available Not Available No t Available doxycycli ne hyclate 100 mg tablet Take 1 tablet twice a day by oral route for 10 days. 2014 active Not Available Not Available Not Avai lable dicyclomi ne 10 mg capsule Take 2 capsules 4 times a day by oral route for 7 days. 02/24 completed Not Available Not Available Not Available naproxen 500 mg tablet Take 1 tablet twice a day by oral route as needed for 30 days. 2013 active Not Available Not Available Not Avai lable doxazosin 2 mg tablet Take 2 tablets every day by oral route in the evening. active Not Available Not Available No t Available amoxicill in 875 mg-potass ium clavulana te 125 mg tablet TAKE 1 TABLET TWICE A DAY BY ORAL ROUTE DIRECTED FOR 10 DAYS, FOR DIVERTIC ULITIS. 09/27 completed Not Available Not Available Not Available magnesium 250 mg (as magnesium oxide) tablet Take 1 tablet every day by oral route for 30 days. 11/24 completed Not Available Not Available Not Available tobramyci n 0.3 %-dexamet hasone 0.1 % eye drops,delphine pension 12/09 completed Not Available Not Available Not Available oxycodone 5 mg tablet 11/24 completed Not Available Not Available Not Available enoxapari n 40 mg/0.4 mL subcutane ous syringe INJECT 1 SYRINGE SUBCUTAN EOUSLY DAILY FOR 10 DAYS, START THE DAY AFTER SURGERY WITH DR.WESTO Lopez 10/19 completed Not Available Not Available Not Available Vitamin D3 25 mcg (1,000 unit) capsule Take 1 capsule every other day by oral route. 04/12 completed takes 2,000 IU during cold months Not Available Not Available Not Available apple cider vinegar 500 mg tablet Take 1 tablet every day by oral route. 12/11 completed Not Available Not Available Not Available rosuvasta tin 5 mg tablet Take 1 tablet every day by oral route. 03/04 completed Not Available Not Available Not Available Readi-Cat 2 2.1 % (w/v), 2.0 % (w/w) oral suspensio n Take 450 mL twice a day by oral route as directed for 1 day. 02/14 completed Not Available Not Available Not Available Sensipar 30 mg tablet 30 mg by oral route. 12/19 completed Not Available Not Available Not Available acetamino phen take 2 qd 10/27 completed Not Available Not Available Not Available vitamin E active Not Available Not Radha ilable Not Available omeprazol e DAILY 01/07 completed RECORDED 01/08/20 13 9:43AM BY DANNA WEBBER MA, OFFICE VISIT; Not Available Not Available Not Available Fish Oil DAILY 08/21 completed RECORDED 09/17/19 13 11:12AM BY WON Kwong MD, MEDICATI ON AUTO-DUSTIN CTIVATIO N; Not Available Not Available Not Available Aspirin EC DAILY 08/21 completed RECORDED 09/17/19 13 11:12AM BY WON Kwong MD, MEDICATI ON AUTO-DUSTIN CTIVATIO N; Not Available Not Available Not Available losartan 100mg in am active Not Available Not Available No t Available multivita min daily 09/30 completed Not Available Not Available Not Available apple cider vinegar 10/19 completed Not Available Not Available Not Available Multivita mins DAILY 09/12 completed RECORDED 09/13/19 14 10:06AM BY DANNA WEBBER MA, OFFICE VISIT; Not Available Not Available Not Available red yeast rice 600 mg capsule Take 1 capsule twice a day by oral route. 06/05 completed Not Available Not Available Not Available Zostavax (PF) 19,400 unit/0.65 mL subcutane ous suspensio n EDEN X 1 05/12 completed RECORDED 09/09/19 14 8:43AM BY WON Kwong MD, MEDICATI ON AUTO-DUSTIN CTIVATIO N; Not Available Not Available Not Available cholecalc iferol (vitamin D3) 50 mcg (2,000 unit) capsule Take 1 capsule every other day by oral route. 09/30 completed Not Available Not Available Not Available cholecalc iferol (vitamin D3) 50 mcg (2,000 unit) tablet DAILY 08/21 completed RECORDED 09/17/19 13 11:12AM BY WON Kwong MD, MEDICATI ON AUTO-DUSTIN CTIVATIO N; Not Available Not Available Not Available GaviLyte- G 236 gram-22.7 4 gram-6.74 gram-5.86 gram oral solution TAKE 8 OUNCE BY MOUTH DIRECTED FOLLOW INSTRUCT IONS PROVIDED TO YOU BY DOCTORS OFFICE 04/13 completed Not Available Not Available Not Available grape seed extract 50 mg-biofla vonoids, citrus 250 mg capsule Take 1 capsule every day by oral route. 07/05 completed Not Available Not Available Not Available B12 active Not Available Not Availa ble Not Available garlic 200 mg tablet Take 2 tablets twice a day by oral route. 07/05 completed Not Available Not Available Not Available Eliquis 2.5 mg tablet Take by oral route for 14 days. 12/06 completed Not Available Not Available Not Available folic acid 0.8 mg capsule Take 1 capsule every day by oral route. active Not Available Not Available No t Available Readi-Cat 2 2 % (w/v) oral suspensio n PLEASE SEE ATTACHED FOR DETAILED DIRECTIO NS 12/11 completed Not Available Not Available Not Available BinaxNOW COVID-19 Ag Self Test kit USE DIRECTED 05/12 completed Not Available Not Available Not Available Vitals Date Recorded Body height Body temperature Body mass index (BMI) Body weight Provider Name and Address Organization Details Last Updated DateTime 07/29/2024 158.75 cm 97.6 [degF] 34.2 kg/m2 31385.55 g Kalyn Almonte LPN [facility] 07/29/2024 14:24:16 Date Recorded Body height Body mass index (BMI) Body weight Heart rate Oxygen saturation Oxygen saturation in Arterial blood by Pulse oximetry Body temperature Systolic And Diastolic Provider Name and Address Organization Details Last Updated DateTime 158.75 cm 34 kg/m2 47687.9 6 g 77 /min 96 % 96 % 97.1 [degF] 146/68 mm[Hg] Reva Clemente MA [facility] 11:01:33 Date Recorded Body height Body mass index (BMI) Body weight Heart rate Oxygen saturation Oxygen saturation in Arterial blood by Pulse oximetry Body temperature Systolic And Diastolic Provider Name and Address Organization Details Last Updated DateTime 5 158.75 cm 36 kg/m2 02768.4 7 g 72 /min 98 % 98 % 97.4 [degF] 152/72 mm[Hg] Reva Clemente MA [facility] 15:09:32 Date Recorded Systolic And Diastolic Provider Name and Address Organization Details Last Updated DateTime 10/19/2024 108/62 mm[Hg] Elena Ledesma MA [facility] 10/19/2024 15:49:48 Date Recorded Body height Heart rate Oxygen saturation Oxygen saturation in Arterial blood by Pulse oximetry Body temperature Systolic And Diastolic Provider Name and Address Organization Details Last Updated DateTime 158.75 cm 84 /min 96 % 96 % 97.7 [degF] 127/71 mm[Hg] Tila rogers MA [facility] 5 11:38:39 Social History Question Answer Notes LastModified by Organizat ion Details LastModified Time Tobacco Smoking Status Never Smoker KANDY Go [facility] 08/15/2024 10:49:05 Do You Have An Advance Directive? No HCP/ Niece: Erika Gamboa austincaro Information not available 05/22/2023 Is Blood Transfusion Acceptable In An Emergency? Yes [id number] Information not available 04/03/2020 What Is Your Level Of Caffeine Consumption? Moderate Coffee 1 Daily [email or web address] Information not available 12/07/2023 How Much Tobacco Do You Chew? None [id number] Information not available 04/03/2020 What Type Of Diet Are You Following? REGULAR [email or web address] Information not available 07/23/2020 Which Illicit Or Recreational Drugs Have You Used? None [id number] Information not available 04/03/2020 Education 4 Year College [email or web address] Information not available 07/04/2021 Are There Any Guns Present In Your Home? No [email or web address] Information not available 07/04/2021 Live Alone Or With Others? Alone [email or web address] Information not available 07/04/2021 Do You Take Precautions To Prevent Distracted Driving? Yes [email or web address] Information not available 05/30/2015 How Often Do You Need To Have Someone Help You When You Read Instructions, Pamphlets, Or Other Written Material From Your Doctor Or Pharmacy? Never Sand Sign Information not available 05/30/2015 Have You Served In The ? No Information not available 06/05/2016 Have You Or Anyone In Your Household Had Any Of The Following Symptoms In The Last 14 Days: Sore Throat, Cough, Chills, Body Aches For Unknown Reasons, Shortness Of Breath For Unknown Reasons, Loss Of Smell, Loss Of Taste, Fever At Or Greater Than 100 Degrees Fahrenheit? No Information not available 02/14/2020 Are You Or Anyone In Your Household A Health Care Provider Or Emergency Responder? No Information not available 02/14/2020 To The Best Of Your Knowledge Have You Been In Close Proximity To Any Individual Who Tested Positive For COVID-19? No Information not available 02/14/2020 *AWV ONLY* Are You Presently Prescribed Opioid Medication By PCP Or Specialist? If YES -Provider Assess The Benefit For Other, Non-opioid Pain Therapies Instead, Even If The Patient Does Not Have OUD But Is Possibly At Risk. No Information not available 02/14/2020 Have You Recently Traveled To A [facility] Area Or Gathering In The Last 10 Days? No Information not available 07/23/2020 What Was The Date Of Your Most Recent Tobacco Screening? 08/15/2024 Information not available 08/15/2024 How Many Children Do You Have? 0 [id number] Information not available 04/03/2020 Do You Use Protection During Sex? Always [id number] Information not available 04/03/2020 Seat Belts Used Routinely Yes [email or web address] Information not available 07/04/2021 Are You Sexually Active? Yes [id number] Information not available 04/03/2020 Smoke Alarm In Home Yes Information not available 07/04/2021 At What Age Did You Start Smoking Tobacco? 1 [id number] Information not available 04/03/2020 Are You Passively Exposed To Smoke? No Information not available 02/01/2014 How Much Tobacco Do You Smoke? No [id number] Information not available 04/03/2020 Do You Use Sunscreen Routinely? Yes [id number] Information not available 04/03/2020 How Many Years Have You Smoked Tobacco? 0 [id number] Information not available 04/03/2020 Sex: Unknown Functional Status Question Answer Note LastModified by Organizat ion Details LastModified Time Do you use any illicit or recreational drugs? No Information not available 07/25/2021 Do you or have you ever used any other forms of tobacco or nicotine? No Information not available 07/25/2021 What is your level of alcohol consumption? Occasional 1x month [id number] Information not available 04/03/2020 Do you or have you ever used smokeless tobacco? Never used smokeless tobacco [id number] Information not available 04/03/2020 Are you currently employed? No retired [id number] Information not available 04/03/2020 Are you able to walk? YESASSIST Information not available 12/07/2023 Are you able to care for yourself? 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 Never used electronic cigarettes [email or web address] Information not available 07/04/2021 What is your exercise level? None Information not available 12/07/2023 Mental Status None recorded. Family History Relationship Description Onset Age of this Age Resolved Age Notes LastModified by Organization Details LastModified Time Mother Ruptured cerebral aneurysm [email or web address] Not available 07/04 12:59:18 Mother Malignant neoplasm of lung abolcun Not available 2015 14:57:49 Mother Hiatal hernia [email or web address] Not available 07/04 12:59:18 Mother Arthritis abolcun Not available 09/27/2015 14:57:49 Father Alcoholism [email or web address] Not avail able 07/04/2021 12:59:18 Father Diabetes mellitus abolcun Not available 2015 14:57:49 Brother Arthritis abolcun Not availabl e 09/27/2015 14:57:49 Sister Acute myeloid leukemia, disease [email or web address] Not available 07/04 12:59:18 Sister Factor V deficiency [email or web address] Not available 07/2021 12:59:18 Sister Malignant neoplasm of lung abolcun Not available 2015 14:57:49 Medical History Condition Response Muscle, Joint, or Bone Problems Y Obesity Y Hypertension Y Kidney Stones Y High Cholesterol Y Gynecological History Statement/Question Response Date of Last Colonoscopy 08/20/2016 10/04/2012 Most Recent Bone Density 02/03/2023 Date of Last Pap Smear Current Control Method Hysterectom y Most Recent Mammogram 02/11/2024 Obstetrics History GPAL:G 0 P 0 0 0 0 Immunizations Vaccine Type Date Status Note Provider Name and Address Organization Details Recorded Time pneumococcal polysaccharide PPV23 014 completed [facility] 09/03/2020 13:51:43 Influenza, split virus, trivalent, PF 015 completed Staci vaughan [facility] 09/03/2020 13:51:43 COVID-19, mRNA, LNP-S, PF, 100 mcg/0.5mL dose or 50 mcg/0.25mL dose 021 completed KANDY Go [facility] 11/27/2022 10:22:12 COVID-19, mRNA, LNP-S, PF, 100 mcg/0.5mL dose or 50 mcg/0.25mL dose 021 completed KANDY Go [facility] 11/27/2022 10:22:12 influenza, unspecified formulation 020 completed [facility] 10:48:25 COVID-19, mRNA, LNP-S, PF, 100 mcg/0.5mL dose or 50 mcg/0.25mL dose 021 completed KANDY Go [facility] 11/27/2022 10:22:12 Pneumococcal conjugate PCV 13 017 completed KANDY Alarcon [facility] 12/22/2022 11:34:54 Influenza, split virus, trivalent, PF [facility]14 [facility] 11:34:55 Influenza, high-dose, trivalent, PF 017 [facility] 11:34:54 Influenza, high-dose, trivalent, PF 017 completed KANDY Alarcon [facility] 12/22/2022 11:34:54 Influenza, high-dose, trivalent, PF 019 [facility] 11:34:55 Td (adult), 2 Lf tetanus toxoid, preservative free, adsorbed 019 completed KANDY Alarcon [facility] 12/22/2022 11:34:55 Influenza, high-dose, trivalent, PF 018 completed KANDY Alarcon [facility] 12/22/2022 11:34:54 Influenza, high-dose, quadrivalent, PF 021 completed Reva Clemente MA null, [facility] 11/27/2022 10:22:12 Influenza, high-dose, quadrivalent, PF 020 completed Reva Clemente MA null, [facility] 11/27/2022 10:22:12 Tdap 009 completed Staci Heath null, [facility] 09/03/2020 13:51:43 pneumococcal polysaccharide PPV23 014 completed Staci Heath null, [facility] 09/03/2020 13:51:43 zoster recombinant 020 cancelled patient objection Won Kelly MD [address] [facility] [address] [facility], [place], [address], [facility] 07/05/2019 13:55:22 Influenza, high-dose, quadrivalent, PF 022 completed Won Kelly MD [address] [facility], [place], [address], [facility] 05/26/2022 18:50:52 Influenza, high-dose, quadrivalent, PF 023 completed Won Kelly MD [address] [facility] [address] [facility], [place], [address], [facility] 05/11/2023 06:49:38 Past Encounters Encounter ID Performer Location Encounter Start Date Encounter Closed Date Diagnosis/Indication Diagnosis SNOMED-CT Code Diagnosis ICD10 Code Diagnosis Note [id number] auto[facility]Comm erce [address] [facility] [facility] [place] [address] 05/05/2012 00:00:00 [id number] autoEComm erce [address] [facility] [facility] [place] [address] 07/22/2012 00:00:00 [id number] autoEComm erce [address] [facility] [place] [address] 10/27/2012 00:00:00 [id number] autoEComm erce [address] [facility] [address] [place], [place] [id number] 01/07/2013 00:00:00 [id number] autoEComm erce [address] [facility] [address] [place], [place] [address] 05/11/2013 00:00:00 [id number] autoEComm erce [address] [facility] [address] [facility] [place] [address] 09/12/2013 00:00:00 [id number] Owen [facility] Main Office [address] [facility] [address] [place] [place], [place] [address] 02/01/2014 12:57:26 02/01/2014 14:00:06 Pre-surgery evaluation 290400446 Hernia of anterior abdominal wall 208567977 Essential hypertension 79380415 ? of white coat phenomena. elevated systolic BP today. [facility] [id number] Won Kelly MD Main Office [address] [address] [place] [address] 03/15/2014 10:29:47 03/15/2014 11:25:52 Needs influenza immunization 607203184 Gastroesop hageal reflux disease 064853848 Not well controlled on regular NSAID. Will titrate dose for now. Unable to have EGD in the past beacuase of high deductible but may need to revisit this if symptoms worsen/per sist. Essential hypertension 43545735 Poor control post hernia surgery on NSAID. Will monitor for now. Pure hypercholesterolemia 485163661 Due for reassessme nt althoug she has declined/n ot tolerated treatment well in the past. Vitamin D deficiency 81758652 [id number] Won Kelly MD Main Office [address] [facility] [address] [place] [address] 05/17/2014 13:56:02 05/17/2014 15:30:15 Adult health examination 754492430 Immunizati on status utd, pt advised to pursue Zostavax at local pharmacy. Colon cancer screening utd but due next year. Need to track down prior report for confirmati on. Regular dental and ophtho care advised as well as seatbelt and sunscreen use. Pt currently demonstrat es low risk for falls and no significan t cognitive decline. Advacne directives discussed and form provided. Obstructiv e sleep apnea syndrome 99873352 Over due for f/u needs ne equipment. Body mass index 30+ - obesity 521178848 Menopause present 153516275 Essential hypertension 56884260 Well controlled . Continue current regimen. Hyperparathyroidism 62291673 Gastroesop hageal reflux disease 666666545 Well controlled . Continue current regimen. Pure hypercholesterolemia 448548564 Due for reassessme nt although she has declined/n ot tolerated treatment well in the past. Vitamin D deficiency 23134325 Arthropathy 075306133 Chronic depression 663384179 Mild and symptoms not impacting function at this time. Pt not interested in meds but wants to try pet therapy. [id number] Won Kelly MD Main Office [address] [place] [address] 09/15/2014 10:48:56 09/15/2014 11:54:50 Essential hypertension 19903915 Not well controlled today but numerous reversible explaintio ns for this. Pt will address these issues and have lab work done [place]. Continue current regimen for now. Pure hypercholesterolemia 389489083 Due for reassessme nt although she has declined/n ot tolerated treatment well in the past. Lab orders reprinted. Gastroesop hageal reflux disease 864389748 Well controlled without warning signs/symp toms. Continue current regimen. [id number] Won Kelly MD Main Office [address] [facility] [address] [place] [address] 11/20/2014 09:12:26 11/20/2014 10:14:31 Essential hypertension 91765869 Well controlled , today. Continue current regimen. Pure hypercholesterolemia 060598581 10 yr CV risk is 11.5%. Wants to try red yeast rice. Will monitor lipid response and normal statin labs. Gastroesop hageal reflux disease 134688271 Well controlled without warning signs/symp toms. Continue current regimen. Hyperparathyroidism 22882476 Calcium normal, without significan t symptoms. Will defer endo f/u and considerat ion of parathyroi dectomy unless bone density is worse. [id number] Won Kelly MD Main Office [address] [facility] [address] [place] [address] 02/28/2015 10:25:36 02/28/2015 11:11:02 Essential hypertension 74002186 Well controlled , today. Continue current regimen. Pure hypercholesterolemia 727106985 10 yr CV risk is 11.5%. Need to reassess lipids on red yeast rice. Labs reprinted to pt. Gastroesop hageal reflux disease [id number] Well controlled without warning signs/symp toms. Continue current regimen. [id number] Won Kelly MD Main Office 3640 [facility] [address] [place] [address] 04/20/2015 13:27:09 04/20/2015 14:09:49 Knee pain 92981497 M25.562 No evidence of acute ligamentou s injury. Suspect aggravatio n of OA. Will image to reassess degree and rule out new elvira abnormalit y. Will resume NSAID with pt cautioned to monitor for impact on BP and GI tract. Will continue RICE and await rheum appt next month. [id number] Won Kelly MD Main Office 36[address] [facility] 207 [facility] [place] [address] 05/30/2015 12:57:59 05/30/2015 14:11:33 Adult health examination 166414926 Z00.01 Immunizati on status utd, pt advised to pursue Zostavax and PCV13 at local pharmacy. Colon cancer screening, and pt will arrange after upcoming insurance provider switch. Regular dental and ophtho care advised as well as seatbelt and sunscreen use. Pt currently demonstrat es low risk for falls and no significan t cognitive decline. Advance directives discussed. Body mass index 30+ - obesity 653177584 Z68.39 Obstructiv e sleep apnea syndrome 23310312 G47.33 Menopause present 799760 006 N95.1 Essential hypertension 02940056 I10 Better on recheck. Will continue current regimen for now. If persistent ly >140/90 consider adding amlodipine . Hyperparathyroidism 6699 9008 E21.3 Gastroesop hageal reflux disease 419554406 K21.9 Well controlled . Continue current regimen. Pure hypercholesterolemia 471959974 E78.0 Due for reassessme nt although she has declined/n ot tolerated treatment well in the past. Vitamin D deficiency 347 78394 E55.9 Chronic depression 25836 0009 F34.1 Mild and symptoms not impacting function at this time. Pt not interested in meds. Osteoarthritis 667149779 M19.90 [id number] Won Kelly MD Main Office [address] [place] [address] 09/27/2015 14:46:23 09/27/2015 15:44:49 Essential hypertension 19567431 I10 Well controlled , continue current dose. Pure hypercholesterolemia 155349840 E78.0 Pt continues to to decline another statin trial despite understand ing potential consequenc es. Will monitor. Increased frequency of urination 678560271 R35.0 Treat UTI and if symptoms persist evaluate further. Pyuria 1796196 N39.0 Hyperparathyroidism 6699 9008 E21.3 Pt will schedule f/u with endo. Albuminuria 779451083 R8 0.9 If persistent after UTI tx will need serum and urine protein electropho resis. [id number] Won Kelly MD Main Office [address] [address] 12/27/2015 10:06:34 12/27/2015 10:43:28 Essential hypertension 76961722 I10 Pure hypercholesterolemia 147530401 E78.0 On red yeast rice. Gastroesop hageal reflux disease 866572197 K21.9 Well controlled . Pt will try to decrease PPI use and let me know if tolerating so that H2B transition can be attempted. Hyperparathyroidism 6699 9008 E21.3 Pt will schedule f/u with endo. Tendon triggering 237678 008 M65.30 Pt will f/u with rheum if persistent /worse. [id number] Won Kelly MD Main Office [address] [address] 06/05/2016 10:06:00 06/05/2016 11:29:14 Adult health examination 203847507 Z00.01 Immunizati on status updated, pt advised to pursue Zostavax at local pharmacy. Colon cancer screening due. Regular dental and ophtho care advised as well as seat belt and sunscreen use. Pt currently demonstrat es low risk for falls and no significan t cognitive decline. Advance directives discussed. Essential hypertension 88410260 I10 Not at goal. Will add low dose diuretic. Pt advised on common/ser ioud potential side effects and to call with problems. Hyperparathyroidism 6699 9008 E21.3 Pt will schedule f/u with endo. Body mass index 30+ - obesity 727403897 E66.01 Vitamin D deficiency 347 26152 E55.9 Overdue for bone density. Pt will arrange with mammogram [place]. Screening for malignant neoplasm of colon 135799534 Z12.11 Pt understand s potential consequenc es to continued deferral. Benign eugenio plasm of colon 46814872 D12.6 Chronic depression 89067 0009 F34.1 Mild and symptoms not impacting function at this time. Pt not interested in meds. Administra tion of pneumococcal vaccine 03245318 Z23 Influenza vaccine needed 4495489836 106 Z23 Screening for malignant neoplasm of breast 539209452 Z12.39 Pure hypercholesterolemia 094412313 E78.01 Continues to decline statin despite understand ing potential benefit. Will reassess labs and overall risk then readdress. [id number] Sierra Sellers PA-C Main Office 36[address] [facility] 207 [place] [address] 07/04/2016 13:25:05 07/04/2016 14:10:33 Essential hypertension 29440628 I10 Continue Losartan 100 mg daily. Add Amlodipine at 5 mg daily. Check BP daily at home. Pt. has f/u with PCP in July. Esophageal dysphagia 408 40528 R13.19 Increase Omeprazole 20 mg and try to take BID for 1-2 weeks. F/u with the GI. [id number] Won Kelly MD Main Office 36[address] [facility] 207 [place] [address] 09/04/2016 13:45:10 09/04/2016 14:19:38 Osteoarthritis of knee 764765203 M17.4 has f/u scheduled with rheum upcoming Essential hypertension 23698982 I10 Well controlled with addition of amlodipine . Will continue current regimen. Pure hypercholesterolemia 088641084 E78.01 Continues to decline statin despite understand ing potential benefit. Will reassess labs and overall risk then readdress. Hyperparathyroidism 6699 9008 E21.3 Pt will schedule f/u with endo [place], aidee with fatigue and recent finding of kidney stone. Vitamin D deficiency 347 96002 E55.9 Has been taking vit d QOD. Advised to resume dailly supplement . Overdue for bone density. Pt will arrange with mammogram [place]. Kidney stone 89457276 N2 0.0 Gastroesop hageal reflux disease 087159302 K21.9 Well controlled , continue current regimen. [id number] Won Kelly MD Main Office 36[address] [facility] [address] [place] [address] 02/06/2017 10:29:23 02/06/2017 11:59:41 Essential hypertension 63959082 I10 Well controlled , continue current regimen. Influenza vaccine needed 2149926049 106 Z23 Hyperparathyroidism 6699 9008 E21.3 We will schedule f/u with endo [place], aidee with fatigue and recent finding of kidney stone. Pt to have bnd done [place]. Pure hypercholesterolemia 541569662 E78.01 Agree to try another statin in hopes to reduce CVD risk. Will start low dose. Pt advised of common/ser ious potential side effects and to call if noted. Will titrate as tolerated to goal LDL response. Cramp in lower limb 4499 47834 R25.2 Adequate hydration advised and will try Mg supplemnt given her PPI use. [id number] Won Kelly MD Main Office 36[address] [facility] [address] [place] [address] 07/01/2017 09:58:19 07/01/2017 11:32:11 Adult health examination 830635194 Z00.00 Immunizati on status utd, pt advised to pursue Zostavax at local pharmacy. Colon and breast cancer screening utd, no indication for cervical cancer Screening. Regular dental and ophtho care advised as well as seat belt and sunscreen use. Pt currently demonstrat es low risk for falls and no significan t cognitive decline. Advance directives discussed. Body mass index 30+ - obesity 442425152 E66.01 Z68.38 Hyperparathyroidism 6699 9008 E21.3 Has f/u with endo in August. Pt to have bnd done [place] as well. Essential hypertension 62695166 I10 Well controlled , continue current regimen. Chronic depression 65660 0009 F34.1 Mild and symptoms not impacting function at this time. Pt not interested in meds or therapy. Gastroesop hageal reflux disease 537031901 K21.9 Well controlled without warning signs. Continue current regimen. Obstructiv e sleep apnea syndrome 86441745 G47.33 Using CPAP and tolerating well. Inflammati on of sacroiliac joint 35519661 M46.1 Contijue NSAID and start home therapy. Will prescribe steroids if not slowly improving [id number] Won Kelly MD Main Office [address] [place] [address] [place] [address] 10/21/2017 11:00:18 10/21/2017 12:10:47 [id number] Mohit Sellers PA-C Main Office [address] [place] [address] [place] [address] 10/27/2017 09:04:42 10/27/2017 09:59:29 Transition of care 3482966940 105 Z75.8 Pyelonephritis 70955232 N12 s/p inpt admission, rec'd iv abx, no take outpt abx d/t drug allergy - okay as per uro Calculus o f kidney and ureter 480443913 N20.2 s/p stent - f/u c uro in 2 days Essential hypertension 80192469 I10 bp stable, cont meds as dir Heart murmur 20643272 R0 1.1 ? mild aortic stenosis - will check echo for further eval [id number] Mohit Sellers PA-C Main Office [address] [place] [address] [place] [address] 11/24/2017 11:36:10 11/24/2017 12:34:12 Mitral valve regurgitation 74377937 I34.0 mild on echo 6.18 Aortic allen ve regurgitation 91987166 I35.1 mild on echo 6.18 Essential hypertension 50128564 I10 bp stable, cont meds as dir Diastolic dysfunction 35 95777 I50.30 mild on echo 6.18 Mixed hyperlipidemia 267 593827 E78.2 rec low carb diet, less red meat Hyperparathyroidism 6699 9008 E21.3 will check pth and vit d c cc: to endo Calculus o f kidney and ureter 714577867 N20.2 s/p stent - f/u c uro next month [id number] Won Kelly MD Main Office [address] [place] [address] [place] [address] 02/02/2018 10:49:18 02/02/2018 12:54:09 [id number] Sierra Sellers PA-C Main Office 36[address] [facility] [address] [place] [address] 02/05/2018 14:28:41 02/05/2018 15:48:07 Upper abdominal pain 31309055 R10.10 Most likely muscular. Will check additional hepatic labs and lipase. Pt. reassured. Symptoms are sign. improved so far. Flank pain 353277202 R10 .9 Negative urine dipstick. Pt. will f/u on renal stones as scheduled with the urology. [id number] Mohit Sellers PA-C Main Office 36[address] [facility] [address] [place] [address] 02/24/2018 10:57:28 02/24/2018 12:06:59 Essential hypertension 92829108 I10 bp and Cr stable, cont meds as dir and add lasix since has hctz allergy - pt to d/w pharmacist as well, and monitor bp at home - call if trends too low or too high Influenza vaccine needed 8994738153 106 Z23 Upper abdominal pain 831 57739 R10.10 resolved Hyperparathyroidism 6699 9008 E21.3 cont to f/u c endo prn Hypercholesterolemia 136 20846 E78.2 no tolerate statin in past rec low carb diet (aidee less bagels, bread & pasta) / your good cholestero l (hdl) is a little low - rec. increased aerobic exercise. ascvd 18% - rec trial of fish oil daily and will get card eval for considerat ion of PCSK9 inhibitor, as well as discuss bp med options Mitral allen ve regurgitation 86189294 I34.0 mild on echo 6.18 [id number] Mohit Sellers PA-C Main Office 36[address] [facility] [address] [place] [address] 04/27/2018 10:30:23 04/27/2018 11:25:00 Essential hypertension 74834805 I10 bp and Cr stable, cont meds as dir Pure hypercholesterolemia 216151266 E78.00 see below - pending card eval Aortic allen ve regurgitation 74180424 I35.1 mild on echo 6.18 -- pending see card on 05.04.18 Hyperparathyroidism 6699 9008 E21.3 cont to f/u c endo Osteopenia 554283167 M85 .80 just had dexa scan - rev c pt - gave copy to pt Osteoarthritis 413335997 M19.90 cont f/u c ATC - next in 2.19 Constipation 12584821 K5 9.00 seen by gen smith lately - feels abd pain not surgically related - rec increase colace [id number] Won Kelly MD Main Office 3640 [facility] [address] [facility] [place] [address] 07/02/2018 10:15:34 07/02/2018 11:18:26 Adult health examination 096662400 Z00.00 Immunizati on status updated, pt advised to pursue Shingrix at local pharmacy. Colon and breast cancer screening utd, no indication for cervical cancer Screening. Regular dental and ophtho care advised as well as seat belt and sunscreen use. Pt currently demonstrat es low risk for falls and no significan t cognitive decline. Advance directives discussed. Requires a tetanus booster 618352160 Z23 Varicella vaccination 68 645489 Z23 Screening for malignant neoplasm of breast 912946976 Z12.39 Body mass index 30+ - obesity 551441577 E66.01 Z68.39 Hyperparathyroidism 6699 9008 E21.3 Has f/u with endo in August. Due for bnd in 2019. Diastolic dysfunction 35 89824 I50.30 Essential hypertension 02756335 I10 Poor control, pt intolerant to numerous medication s most recently amlodipine . WIll recheck labs and consider BB at f/u if still >120/90. Chronic depression 84602 0009 F34.1 Mild and symptoms not impacting function at this time. Pt not interested in meds or therapy. Gastroesop hageal reflux disease 485299643 K21.9 Well controlled without warning signs. Continue current regimen. Obstructiv e sleep apnea syndrome 77958178 G47.33 Using CPAP and tolerating well. Pure hypercholesterolemia 664095805 E78.01 Intolerant to rosuvastat in. Defers another medication trial at this time. [id number] Won Kelly MD Main Office 36[address] [facility] [address] [place] [address] 09/09/2018 14:35:38 09/09/2018 15:36:12 Essential hypertension 29995374 I10 Poor control, pt intolerant to numerous medication s most recently amlodipine . WIll recheck labs and see if non dihydropyr idine CCB is effective and tolerated. Pure hypercholesterolemia 655925219 E78.01 Intolerant to rosuvastat in. Defers another medication trial at this time. Will discuss options with Dr. Rausch at her appt tomorrow. Hyperparathyroidism 6699 9008 E21.3 Has f/u with endo in August. Due for bnd in 2019. [id number] Won Kelly MD Main Office [address] [place] [address] 12/09/2018 09:13:45 12/09/2018 10:08:52 Essential hypertension 41541892 I10 Finally well controlled and only on 2 meds. Will continue current regimen. Pure hypercholesterolemia 549843743 E78.01 Intolerant to several statins. Defers another medication trial at this time, but asked to consider Livalo if her ins covers it. Pyuria 3700430 N39.0 Asymptomat ic, likely a contaminan t. Will call if this changes. Family his tory of Factor V Leiden mutation [id number] 0985371 Z83.2 Pt otherwise has no symptoms or risk factors. Will defer screening until next round of labs. [id number] Jack Kirkland MD Main Office [address] [place] [address] 01/12/2019 10:46:19 01/12/2019 11:42:01 Upper abdominal pain 54058842 R10.10 Most likely muscular. Will check additional hepatic labs and lipase. Pt. reassured. Symptoms are sign. improved so far. Lactose intolerance 2674 39340 E73.9 Avoid regular milk products. [id number] Jack Kirkland MD Main Office [address] [place] [address] 02/04/2019 13:19:51 02/04/2019 14:25:08 Upper abdominal pain 43078730 R10.10 patient did not complete lab work from last visit in December, will reorder and add several more labs and add CT to r/o ? pancreatit is, ? ventral hernia, ? gastric ulcer; continue bland diet, rest; advised pt to go to ER if sx start worsening. ? IBS as pt./ has also diarrhea. Diarrhea 52814364 R19.7 Essential hypertension 91270886 I10 Increase Diltiazem to ER 240 mg . Test BP at . Return for retest in 4 weeks. [id number] Won Kelly MD Main Office [address] [place] [address] [place] [address] 02/14/2019 13:29:06 02/14/2019 14:15:02 Diarrhea 55914127 R19.7 Stool studies and h pylori testing was all negative. If CT does not explain symptoms will need further evaluation /GI consult. Liver enzy mes level above reference range 867397686 R74.8 pt is s/p cholecyste ctomy. Will need to monitor trend depending on CT scan results. [id number] Won Kelly MD Main Office [address] [place] [address] [place] [address] 02/24/2019 10:38:44 02/24/2019 10:39:43 [id number] Won Kelly MD Main Office [address] [place] [address] 04/11/2019 09:41:16 04/11/2019 10:29:39 Essential hypertension 88048290 I10 Finally well controlled and only on 2 meds. Will continue current regimen. Pure hypercholesterolemia 752262662 E78.01 Intolerant to several statins. Defers another medication trial at this time, but asked to consider Livalo if her ins covers it. Influenza vaccine needed 6007464330 106 Z23 Candidal intertrigo 2661 73482 B37.2 [id number] Won Kelly MD Main Office [address] [place] [address] 07/05/2019 13:01:54 07/05/2019 14:09:43 Adult health examination 344110912 Z00.00 Immunizati on status utd, pt advised to pursue Shingrix at local pharmacy. Colon and breast cancer screening utd, no indication for cervical cancer Screening. Regular dental and ophtho care advised as well as seat belt and sunscreen use. Pt currently demonstrat es low risk for falls and no significan t cognitive decline. Advance directives discussed. Varicella vaccination 68 233547 Z23 Screening for malignant neoplasm of breast 012607619 Z12.39 Hepatitis C screening 41 0258114 Z11.59 Essential hypertension 65180588 I10 Fair control on 2 meds, will monitor and continue current regimen for now Body mass index 30+ - obesity 391661191 E66.01 Z68.38 Hyperparathyroidism 6699 9008 E21.3 Due for bnd in October. Refer back to endo if results/sy mptoms dictate. Diastolic dysfunction 35 19558 I50.30 Exertional dizziness 103 925241 R42 Osteopenia 097534174 M85 .80 Advance di rective discussed with patient 800412849 Z71.89 MOLST form provided/sylvie fink. Pt will bring into next appt after review with HCP. Recurrent major depression in partial remission 24777397 F33.41 Mild and symptoms not impacting function at this time. Pt not interested in meds or therapy. Pure hypercholesterolemia 265210706 E78.01 Intolerant to several statins. Defers another medication trial at this time, but asked to consider Livalo if her ins covers it. [id number] [facility] [address] [place] [address] 10/19/2019 08:15:38 10/19/2019 10:44:11 Osteoarthritis of knee 830009582 M17.4 This establishe d diagnosis and her recent inactivity are likely playing off of each other. Will see if short course of prednisone affords some relief. Pt advised to hold NSAID while on prednisone and to call with any problems. IHeat before and cold after activity discussed. Also advised to call rheumatolo bob for possible PT referral/s teroid injection. [id number] [facility] [address] [facility] 207 [place] [address] 11/02/2019 08:22:37 11/02/2019 11:35:20 Essential hypertension 52925746 I10 Control uncertain. Will try to enroll patient in RPM. Continue ARB for now. Pure hypercholesterolemia 810303990 E78.01 Intolerant to several statins. Defers another medication trial at this time, but asked to consider Livalo if her ins covers it. Recurrent major depression in partial remission 41731002 F33.41 Symptoms worse but she is coping and not impacting function at this time. Pt not interested in meds or therapy. Advised to call if having more difficulty . [id number] Won Kelly MD Main Office [address] [place] [address] [place] [address] 12/12/2019 12:43:31 12/12/2019 14:03:07 Diverticulitis 805323822 K57.92 Will cover empiricall y for recurrent diverticul itis. If symptoms persist or worsen will need labs and follow up CT scan. Consider surgical consultati on should this occur frequently and in the same area. Pt advised to call inb/worse or with problems on abx. [id number] Won Kelly MD Main Office [address] [place] [address] [place] [address] 02/14/2020 12:55:06 02/14/2020 13:32:39 Influenza vaccine needed 4453054045 106 Z23 Essential hypertension 26544450 I10 Not well controlled and issues with sulfa based diuretics and CCBs limit options. Will see if spironolca tone if tolerated/ effective. Titrate dose as tolerated. Will try to enroll patient in RPM. Continue ARB for now. [id number] Won Kelly MD [facility] [address] [place] [address] [place] [address] 02/24/2020 08:11:50 03/01/2020 11:40:59 Essential hypertension 82145550 I10 Remains poorly controlled and issues/int olerance with sulfa based diuretics and CCBs limit options. Most recently had ? GI side effects from spironolac tone. Willing to resume 1/2 tablet daily to see if symptoms recur. Titrate dose as tolerated. Continue remote monitoring and ARB for now. If BP remains elevated BB might be an option. >21 min spent discussing diagnosis and treatment options in this difficult scenario. Hyperparathyroidism 6699 9008 E21.3 Still needs to go for BND. Refer back to endo if results/sy mptoms dictate. [id number] Ingrid Govea MD Main Office [address] [place] [address] [place] [address] 03/22/2020 11:40:33 03/22/2020 12:29:03 [id number] Ingrid Govea MD Main Office [address] [place] [address] [place] [address] 03/22/2020 13:30:20 03/22/2020 14:19:23 Transition of care 3564277657 105 Z75.8 Patient concerns for medication side affect discussed concerns addressed. Will repeat electrolyt e in 1 week, had hyperkalem ia tx with kayexalate inpatientP recautiona ry measured discussed including warning signs of elevated BPMedicati on compliance discussedA dvise tele health follow up in 1 week. Essential hypertension 80579005 I10 Continue Cardizem 180mg. Patient BP to be monitored by RPM. Will Titrate medication , Repeat BP follow up in 1 week by [id number] Caron siddiqui MD [facility] [address] [facility] [address] [place] [place] [address] 03/24/2020 09:23:06 03/24/2020 11:29:51 Essential hypertension 52317278 I10 see HPI, recently hospitaliz ed for severe htn, pt now stopping cardizem (last dose yesterday) and BP's are running high, pt is refusing any new med, wants to try holistic approach, I urged pt to start a medication , stating uncontroll ed BP puts her at risk for CVA, heart attack, she is aware of the risks, refused medication , knows to call 911 if she develops chest pain, dizziness, , headache and has appt in 3 days with her primary Dr Kidd [id number] Won Kelly MD Main Office [facility] [place] [address] [place] [address] 03/28/2020 09:18:57 03/28/2020 13:22:42 [id number] Won Kelly MD Main Office [address] [place] [address] [place] [address] 03/29/2020 13:20:50 03/30/2020 06:26:09 Essential hypertension 35240527 I10 Remains poorly controlled and issues/int olerance with sulfa based diuretics and most CCBs limit options. Continue remote monitoring and resume lower dose ARB (losartan) for now, recheck labs 5-7 days after starting. Will reduce nifedipine dose with this to see if better tolerated. [id number] Wilmer Herman MD [place] [address] [facility] [address] [place] [address] 04/05/2020 08:46:00 04/05/2020 11:00:42 Essential hypertension 28054003 I10 Patient has had multiple reactions to medication s, is very hesitant to start new meds. She is avoiding salt, drinking hibiscus tea. she agrees to clonidine patch weekly at low dose. takes 2-3 days to notice change in bp, She is instructed to take bp daily. dash diet, hydration. F/U 04/20 as scheduled. Adverse re action to drug 72395238 T50.905A per patient she was having extreme fatigue, leg pain, sob, cough and dizziness on nifedipine / losartan so she stopped those 3 days ago. [id number] [facility] [address], [place] [address] 04/20/2020 08:54:51 04/20/2020 16:09:24 Essential hypertension 12910016 I10 Remains poorly controlled and issues/int olerance with sulfa based diuretics and most CCBs limit options. COntinue losartna and see if hydralazin e helps. Check in after upcoming nephrology appt. History of noncompliance with medication regimen 792807252 Z91.14 Hyperparathyroidism 6699 9008 E21.3 Still needs to go for BND. Refer back to endo to see if further assessment needs to be done. [id number] [facility] [address] [place] [address] 07/23/2020 08:11:00 07/23/2020 14:29:23 Adult health examination 219381166 Z00.00 Immunizati on status utd, pt advised to pursue Shingrix/C OVID vaccinatio ns at local pharmacy. Colon and breast cancer screening utd, no indication for cervical cancer Screening. Regular dental and ophtho care advised as well as seat belt and sunscreen use. Pt currently demonstrat es low risk for falls and no significan t cognitive decline. Advance directives discussed. Varicella vaccination 68 555048 Z23 Essential hypertension 06064140 I10 Remains poorly controlled and issues/int olerance with sulfa based diuretics and most CCBs limit options. Continue losartan and see if hydralazin e dose titration helps. Continue RPM Pure hypercholesterolemia 900652737 E78.01 Intolerant to several statins. Defers another medication trial at this time, but asked to consider Livalo if her ins covers it. Screening for malignant neoplasm of breast 494845543 Z12.39 Recurrent major depression in partial remission 59821226 F33.41 Symptoms worse but she is coping and not impacting function at this time. Pt not interested in meds or therapy. Advised to call if having more difficulty . Osteopenia 260389832 M85 .80 Due for follow up bone density. Hypercalcemia 06606993 E 83.52 Secondary to hyperparat hyroidism. Being followed by endo and renal. Obstructiv e sleep apnea syndrome 82657796 G47.33 Using CPAP and tolerating well. Body mass index 30+ - obesity 669308081 E66.01 Z68.37 Advance di rective discussed with patient 251093716 Z71.89 MOLST form discussed and will be mailed for her review/com pletion. Hyperparathyroidism 6699 9008 E21.3 Still needs to go for BND. Refer back to endo to see if further assessment needs to be done. Diastolic dysfunction 35 09727 I50.30 No clinical evidence of CHF. Needs better BP cpntrol to mitigate risk. [id number] Won Kelly MD Main Office [address] [facility] [address] 08/27/2020 10:06:08 08/27/2020 11:14:23 Essential hypertension 24728058 I10 Remains poorly controlled and issues/int olerance with sulfa based diuretics and most CCBs limit options. Continue losartan and see if hydralazin e dose titration helps. Continue RPM Recurrent major depression in partial remission 16851323 F33.41 Symptoms worse but she is coping and not impacting function at this time. Pt not interested in meds or therapy. Advised to call if having more difficulty . Hyperparathyroidism 6668 9008 E21.3 Pt has been electing the surveillan ce appraoch on this issue despite qualifying for parathyroi dectomy. Still needs to go for BND. Following with endo. [id number] Won Kelly MD Main Office [address] [facility] [address] 10/09/2020 09:56:26 10/09/2020 10:42:36 Essential hypertension 35946962 I10 Remains poorly controlled and issues/int olerance with sulfa based diuretics and most CCBs limit options. Will defer changes today as losartan was just increased by renal. Consider starting BB if home monitoring shows persistent elevation. Continue RPM Obstructiv e sleep apnea syndrome 02134027 G47.33 Overdue for attention to CPAP. Will arrange sleep medicine follow up. Hyperparathyroidism 6699 9008 E21.3 Pt has been electing the surveillan ce approach on this issue despite qualifying for parathyroi dectomy. Still needs to go for BND (order again provided). Following with endo. Recurrent major depression in partial remission 05075658 F33.41 Symptoms minimal and she is coping and not impacting function at this time. Pt not interested in meds or therapy. Advised to call if having more difficulty . [id number] Won Kelly MD Main Office [address] [facility] 207 [facility] [place] [address] 01/14/2021 10:00:33 01/14/2021 10:43:05 Essential hypertension 85221708 I10 Finally under more reasonable control on a tolerated regimen. Will request recent renal note, and conitnue current regimen. Pure hypercholesterolemia 816443869 E78.01 Intolerant to several statins. Defers another medication trial at this time. Hypercalcemia 39089429 E 83.52 May have resolved. Will check BND and continue monitoring for now. Obstructiv e sleep apnea syndrome 38279548 G47.33 Overdue for attention to CPAP. Will arrange sleep medicine follow up. Hyperparathyroidism 6699 9008 E21.3 Pt has been electing the surveillan ce approach on this issue despite qualifying for parathyroi dectomy. Still needs to go for BND which was scheduled next week. Following with endo. Osteopenia 163480080 M85 .80 Due for follow up bone density, scheduled next week. Generalize d anxiety disorder 94413925 F41.1 Symptoms are mild and pt is coping well. Continue to monitor but advised to call if worse. [id number] Won Kelly MD Main Office [address] [facility] 207 [place] [address] 03/12/2021 15:09:14 03/12/2021 16:03:52 Influenza vaccine needed 4331620481 106 Z23 Diverticular disease 397 883519 K57.90 Will empiricall y treat for diverticul itis. Reassess depending on lab results and symptom progressio n. Upper abdominal pain 831 56787 R10.10 Screen for other possible secondary causes. May need to pursue therapy for hyperparat hyroidism if persistent . Hyperparathyroidism 6699 9008 E21.3 Pt has been electing the surveillan ce approach on this issue despite qualifying for parathyroi dectomy. Follow up with Dr. Ramirez advised to readdress treatment options in context of recent bone density result. Osteoporosis 34654884 M8 1.0 [id number] Won Kelly MD Main Office [address] [facility] 207 [facility] [place] [address] 07/04/2021 12:59:05 07/04/2021 15:00:24 Essential hypertension 83155571 I10 Finally under more reasonable control on a tolerated regimen. Will request recent renal note, and conitnue current regimen. Fatigue 51299219 R53.83 Likely multifacto rial suspect hyperparat hyroidsim vs mood disorder ar most likely the cause. With normal ECG no evidence for cardiac disease. Tight chest 04922337 R07 .89 ECG unchanged from prior. Not likely cardiac but would investigat e further if this persists and is not relieved with anxiety tx. Recurrent major depression in partial remission 60308741 F33.41 Symptoms minimal and she is coping and not impacting function at this time. Pt not interested in meds or therapy. Advised to call if having more difficulty . Panic attack 952731758 F 41.0 Will start with PRN anxiolytic and consider SSRI trial if symptoms don't slowly improve. Vitamin D deficiency 347 27467 E55.9 [id number] Wilmer Herman MD Telehealt h [address] [facility] [place] [address] 07/15/2021 09:58:23 07/16/2021 09:17:36 Diarrhea 61160131 R19.7 Possibly due to diverticul ar disease, but improved as of today and no fever and sign abdominal discomfort . Increase fluids and continue bland diet for couple of more days. If fever or increase in pain, start Augmentin. CHeck for COVID with antigen home test. [id number] Won Kelly MD Main Office [address] [facility] [address] [facility] [place] [address] 07/25/2021 09:33:49 07/25/2021 10:38:08 Adult health examination 396923630 Z00.00 Immunizati on status utd, pt advised to pursue Shingrix/C OVID vaccinatio ns at local pharmacy. Colon and breast cancer screening utd, no indication for cervical cancer Screening. Regular dental and ophtho care advised as well as seat belt and sunscreen use. Pt currently demonstrat es low risk for falls and no significan t cognitive decline. Advance directives discussed. Essential hypertension 88449636 I10 Finally under more reasonable control on a tolerated regimen. Will request recent renal note, and conitnue current regimen. Hyperparathyroidism 6699 9008 E21.3 Pt has been electing the surveillan ce approach on this issue despite qualifying for parathyroi dectomy. Follow up with Dr. Ramirez advised to readdress treatment options in context of recent bone density result. Pure hypercholesterolemia 830580129 E78.01 Intolerant to several statins. Defers another medication trial at this time. Screening for malignant neoplasm of colon 325753648 Z12.11 Scheduled for colon on 09/05/2021 Screening for malignant neoplasm of breast 996731520 Z12.39 Body mass index 30+ - obesity 246207045 E66.01 Z68.38 Diastolic dysfunction 35 55541 I50.30 No clinical evidence of CHF. Needs better BP cpntrol to mitigate risk. Osteoporosis 86151582 M8 1.0 Defer treatment discussion to endo given her parathyroi d issues. Varicella vaccination 68 632364 Z23 [id number] Won Kelly MD Main Office [address] [facility] 207 [place] [address] 11/21/2021 10:10:38 11/21/2021 11:22:56 Essential hypertension 97426621 I10 Finally under more reasonable control on a tolerated regimen. Will request recent renal note, and continue current regimen. Hyperparathyroidism 6699 9008 E21.3 Pt has been electing the surveillan ce approach on this issue despite qualifying for parathyroi dectomy. Follow up with Dr. Ramirez advised to readdress treatment options in context of recent bone density result. Osteoporosis 88351486 M8 1.0 Defer treatment discussion to endo given her parathyroi d issues. Hypercalcemia 19703838 E 83.52 Lilely secondary to hyperparat hyroid state. Advised to f/u with endo [place]. Candidal intertrigo 2661 08241 B37.2 Call inb/worse Otalgia of left ear 1010 640484 H92.02 Suspect TMJ from recent life stressors. Mouth guard trial advised. Non-healin g pigmented skin lesion 507376802 L98.8 Pure hypercholesterolemia 278812298 E78.01 Intolerant to several statins. Defers another medication trial at this time. [id number] Won Kelly MD Main Office 23[address] [facility] 207 [facility] [place] [address] 05/12/2022 10:02:10 05/12/2022 10:54:47 Hypertension monitoring status 890093668 I10 Warranted based on erratic values. Essential hypertension 76005784 I10 Finally under more reasonable control on a tolerated regimen. Will request recent renal note, and continue current regimen. Osteoporosis 61798786 M8 1.0 Defer treatment discussion to endo given her parathyroi d issues. Influenza vaccine needed 8321175765 106 Z23 Hyperparathyroidism 6699 9008 E21.3 Pt has been electing the surveillan ce approach on this issue despite qualifying for parathyroi dectomy. Follow up with Dr. Ramirez advised to readdress treatment options in context of recent bone density result. Advised to call with any problems arranging appt. [id number] Won Kelly MD Main Office [address] [facility] 207 [facility] [address] 11/27/2022 10:17:58 11/27/2022 11:27:10 Adult health examination 421671467 Z00.00 Immunizati on status utd, pt advised to pursue Shingrix/C OVID vaccinatio ns at local pharmacy. Colon and breast cancer screening are due. No indication for cervical cancer Screening. Regular dental and ophtho care advised as well as seat belt and sunscreen use. Pt currently demonstrat es low risk for falls and no significan t cognitive decline. Advance directives discussed. Essential hypertension 74407468 I10 Finally under more reasonable control on a tolerated regimen. Will request recent renal note, and continue current regimen. Hyperparathyroidism 6699 [address] Bang and working on scheduling parathyroi dectomy Pure hypercholesterolemia 884719744 E78.01 Intolerant to several statins. Defers another medication trial at this time despite understand ing potential benefit. Screening for malignant neoplasm of colon 473276552 Z12.11 Cancelled colon/EGD last year. Advised to call Selene to reschedule [place]. Screening for malignant neoplasm of breast 740793701 Z12.39 Body mass index 30+ - obesity 175876216 E66.01 Z68.38 Diastolic dysfunction 35 08325 I50.30 No clinical evidence of CHF. Needs better BP control to mitigate risk. Osteoporosis 02203767 M8 1.0 Defer treatment discussion to endo given her parathyroi d issues. Hypercalcemia 37271600 E 83.52 Likely secondary to hyperparat hyroid state. Advised to f/u with endo [place]. Obstructiv e sleep apnea syndrome 31562317 G47.33 Reports compliance and good symptoms relief with CPAP. Varicella vaccination 68 569163 Z23 Gastroesop hageal reflux disease 421151072 K21.9 Well controlled without warning signs. Continue current regimen. Advance di rective discussed with patient 113318936 Z71.89 MOLST form discussed/ terms defined. Needs to update her HCP as well so will do this with her Neice in Jan. Recurrent major depression in partial remission 22410615 F33.41 Symptoms minimal and she is coping and not impacting function at this time. Pt not interested in meds or therapy. Advised to call if having more difficulty . [id number] Won Kelly MD Main Office 36[address] [facility] [address] [place] [address] 12/22/2022 11:25:40 12/22/2022 12:54:31 Acute back pain with sciatica 067528089 M54.42 Pain of le ft hip joint 1368841559 92132 M25.552 Osteoarthr itis of knee 139429040 M17.4 pending B TKR c neos [id number] Won Kelly MD Main Office [address] [facility] [address] [place] [address] 04/13/2023 11:02:35 04/13/2023 11:52:40 Essential hypertension 43498389 I10 Finally under more reasonable control on a tolerated regimen. Will request recent renal note, and continue current regimen. Pure hypercholesterolemia 981004465 E78.01 Intolerant to several statins. Defers another medication trial at this time despite understand ing potential benefit/co nsequences . Influenza vaccine needed 9005425403 106 Z23 Polyp of colon 81236682 K63.5 Pt will reschedule her colo/EGD [place]. Hypercalcemia 62840538 E 83.52 Likely secondary to hyperparat hyroid state. Advised to pursue parathyroi dectomy plan establishe d with Dr. Bang this past Spring. Hyperparathyroidism 6699 [address] Bang and deferring parathyroi dectomy. Will monitor labs/risk factors. [id number] Wilmer Herman MD Main Office 36[address] [facility] 207 [facility] [address] 05/01/2023 10:56:40 05/01/2023 11:41:47 Abdominal pain 81796829 R10.9 WILL tx as outpatient for presumed diverticul itis. check bloodwork and urine. Gastroesop hageal reflux disease 480712975 K21.9 Diverticular disease 397 599042 K57.90 Hx diverticul itis s/p recent viral illness with every small amounts food/ bland diet then returned to normal eatign and has been eating M&M with peanuts. Will tx for presumed divertic, stable to be treated as outpatient - no fever, N/V/D, blood in stools or other red flag sx at this time.Has many drug sensitivit ies/ allergies, cannot take fluoroquin olones or metronidaz ole. Will tx with augmentin BID x 10 days. Eat prior to taking med and eat yogurt daily. Roper diet- lots of clear liquids, advance as tolerated. F/U in 2 weeks for recheck.ED precaution s: fever, N/V/D, unable to tolerate PO, blood in stools, worsening abd pain despite abx. [id number] Won Kelly MD Telehealt h 3640 [facility] 207 [facility] [place] [address] 05/22/2023 09:37:05 05/22/2023 10:35:51 Diverticulitis of colon 229746204 K57.32 Resolved clinically , no frequent recurrence . Overdue for f/u colonoscop y which she cancelled back in Mar. Advised to reschedule deen. Upper resp iratory infection 83846029 J06.9 ? if allergic vs infectious . Advised to start antihistam ine and test for COVID. Call inb/worse or if second sickenng occu [id number] Won Kelly MD Main Office 36[address] [facility] 207 [place] [address] 07/09/2023 10:12:32 07/09/2023 11:36:09 Left lower quadrant pain 555329267 R10.32 Will start with senna for possible constipati jeremías nd check labs/imagi ng to rule out diverticul itis. Will treat depending on those test results. Diverticular disease 397 118393 K57.90 Upper resp iratory infection 20387198 J06.9 Will treat if positive. Family his tory of Factor V Leiden mutation [id number] 7331000 Z83.2 Has no symptoms or other risk factors. Will screen given familial/g enetic predisposi tion. [id number] Won Kelly MD Main Office 36[address] [facility] 207 [place] [address] 07/13/2023 10:46:56 07/13/2023 11:36:42 Essential hypertension 05839019 I10 Well controlled , continue current regimen. Advance di rective discussed with patient 455212204 Z71.89 MOLST form reviewed/c ompleted and entered into chart. Obstructiv e sleep apnea syndrome 24014902 G47.33 Reports compliance and good symptoms relief with CPAP. Advised that she will need to bring this to hospital with upcoming surgery. Pain of ri ght shoulder joint 3122127447 2711060 M25.511 Diverticul itis of colon 748839971 K57.[address] scheduled for Thursday to reassess diverticul ar burden. Will need colonoscop y [place] and understand s/accepts potential consequenc es to continued deferral. Osteoarthr itis of knee 857303553 M17.4 Scheduled for left TKR in August with Dr. Watson. No preop appt scheduled here, likely to be done [place] [facility], advised to let me know if we need to do it. [id number] Won Kelly MD Main Office [address] [place] [address] [place] [address] 09/28/2023 10:04:47 09/28/2023 11:06:59 [id number] Won Kelly MD Main Office [address] [address] [place] [address] 10/01/2023 12:49:04 10/01/2023 13:47:19 Osteoarthritis of knee 108100532 M17.11 s/p R TKR c neos then stay at [facility]f for rehabcont vna as dircont PT as dircont f/u c neoscont meds as dir Transition from acute care to self-care 5384860910 96379 Z76.89 Essential hypertension 53180424 I10 bp stable, cont meds as direncoura ged pt to resume using RPM - come to find out she has not used it since last ~ 11.23 - likely [facility] is still billing - encouraged pt to call to cx Chronic constipation 236 756761 K59.09 chronic problem (not on narcotics from sx), mildly bothering her lately - did strain this amdoes have senna for prn use - no bm x 2 daysmeanwh ile, rec colace 1 tab qd-qod [id number] Won Kelly MD Main Office [address] [address] [place] [address] 12/07/2023 10:21:01 12/07/2023 11:30:38 Adult health examination 832527841 Z00.00 Immunizati on status utd, pt advised to pursue Shingrix/C OVID/RSV vaccinatio ns at local pharmacy. Colon cancer screening are overdue. No indication for cervical cancer Screening. Regular dental and ophtho care advised as well as seat belt and sunscreen use. Pt currently demonstrat es low risk for falls and no significan t cognitive decline. Advance directives discussed. Screening for malignant neoplasm of breast 696602263 Z12.39 History of right total knee replacement 9378804962 388776 Z96.651 Pt will contact ortho to discuss abx prophylaxi s. Has tolerated Augmentin so PCN allergies removed from list. Essential hypertension 71877885 I10 Finally under more reasonable control on a tolerated regimen. Will request recent renal note, and continue current regimen. Hyperparathyroidism 6699 [address] Bang and working on scheduling parathyroi dectomy Pure hypercholesterolemia 401469048 E78.01 Intolerant to several statins. Defers another medication trial at this time despite understand ing potential benefit. Screening for malignant neoplasm of colon 661605178 Z12.11 Cancelled colon/EGD last year. Has follow up scheduled Body mass index 30+ - obesity 575032214 E66.01 Z68.34 Diastolic dysfunction 35 90280 I50.30 No clinical evidence of CHF. Needs better BP control to mitigate risk. Osteoporosis 12556995 M8 1.0 Defer treatment discussion to endo given her parathyroi d issues. Hypercalcemia 07780737 E 83.52 Likely secondary to hyperparat hyroid state. Will reassess labs. Obstructiv e sleep apnea syndrome 20091160 G47.33 Reports compliance and good symptoms relief with CPAP. Varicella vaccination 68 304909 Z23 Gastroesop hageal reflux disease 635715171 K21.9 Well controlled without warning signs. Continue current regimen. Recurrent major depression in partial remission 68662234 F33.41 Symptoms minimal and she is coping and not impacting function at this time. Pt not interested in meds or therapy. Advised to call if having more difficulty . Administra tion of viral vaccine 12073053 Z29.11 [id number] Wilmer Herman MD Main Office [address] [place] [address] 01/04/2024 10:24:12 01/04/2024 11:00:09 Lesion of vulva 853061205 N90.89 x1 year; right side proximal to the labia majora-hx of hysterecto my-pt unsure of changes in size-sympt oms of burning sensation occasional ly when urinating; around the lesion-den ies of any abnormal vaginal bleeding/d ischarge-d enies of any pruritus, or discharge from the lesion-on PE; 1cm x 1cm in size, scaly, spots of brown discolorat ion, nontender to touch, circular in shape-will refer to air export logistics manager for further evaluation and biopsy if indicated [id number] Won Kelly MD Main Office [address] [address] [place] [address] 04/12/2024 10:50:24 04/12/2024 11:35:43 Essential hypertension 66102705 I10 Finally under more reasonable control on a tolerated regimen. Will request recent renal note, and continue current regimen. Hyperparathyroidism 6699 [address] Bang and parathyroi dectomy pursuits keep getting postponed. Hypercalcemia 27879537 E 83.52 Likely secondary to hyperparat hyroid state. Will reassess labs. Anxiety 94478177 F41.9 See if this helps for PRN anxiety and sleep. 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 Will reschedule with Dr Gurjit harmon. History of Intestinal infection caused by Clostridioides difficile 0275475135 05163 Z86.19 Symptoms resolved post vanco, slow diet advancemen t discussed. Pt again reminded to reschedule the routine colonoscop y f/u she is due for, but would like to wait. Understand s/accepts potential consequenc es to continued deferral. [id number] Won Kelly MD Main Office [address] [place], [place] [address] [address] 08/15/2024 10:42:36 08/15/2024 11:31:06 Essential hypertension 56535035 I10 Finally under more reasonable control on a tolerated regimen. Will request recent renal note, and continue current regimen. Hypercalcemia 95958131 E 83.52 Likely secondary to hyperparat hyroid state. Will reassess labs. Pure hypercholesterolemia 839421385 E78.01 Intolerant to several statins. Defers another medication trial at this time despite understand ing potential benefit. Diarrhea 19910612 R19.7 Improving since stopping probiotics . Slow diet advancemen t advised. Call with any problems. Vulval intraepithelial neoplasia grade 3 929228723 D07.1 Needs to have surgery which was deferred because of the above recent hospitaliz ation. Will reschedule with Dr Gurjit gaitanp. [id number] Ingrid Govea MD Main Office [address] [place] [address], [place] [address] 10/19/2024 14:59:03 10/19/2024 16:09:31 Cellulitis of right upper limb 2045310776 4253093 L03.113 [id number] Won Kelly MD Main Office [address] [place] [address], [place] [address] 10/27/2024 11:33:35 10/27/2024 12:06:42 Cellulitis of right upper limb 7425863646 5659941 L03.113 Cellulitis of right upper extremity, likely secondary to arthropod bite-Start Linezolid 600 mg PO BID x 5 days-Selec tino due to history of C. difficile and multiple drug allergies- Effective coverage for gram-posit stephanie organisms (incl. MRSA/strep )-No renal dosing adjustment needed Labs ordered:-C BC with differenti al and platelets- CRP-ESR-Bl ood cultures (precautio nary)-Teta nus booster not given, Wound was clean and closed-Las t Td on 07/02/2018, within 5-year window for non-contam inated wounds Local care:-Bord ers of erythema outlined for progressio n tracking-M ay continue OTC Aloe-Advis ed patient to avoid topical corticoste roidson the affected area due to concern for local immunosupp ressive effects, which may impair healing or worsen cellulitis . Follow-up: Reassess in 1 week or sooner if worsening (fever, expanding erythema, drainage) Patient reassured regarding antibiotic safety and C. 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 [id number] Z91.038 h/o allergic response to spider and mosquito bites in past, will get allergy eval History of Intestinal infection caused by Clostridioides difficile [id number] Z86.19 encouraged pt to continue to take probiotic qd Health Concerns Section Related Observation LastModified by Organization Detai ls LastModified Time None Recorded Concern Status LastModified by Organization Details LastModified Time None Recorded Advance Directives Directive N: HCP/ Niece: Erika calderon Payers Insurance Date Sequence Insurance Name Policy Number Policy Aldana Covered Member ID Aldana Member ID Guarantor Name 07/15/2021 2 [place]MED[place]ACEMENT HMO) [id number] Mayte L Kishan [id number] Mayte L Kishan 12/12/2024 1 [place] Gracious Eloise Mayte L Kishan [id number] Mayte L Kishan 12/12/2024 2 [place] [id number] Mayte L Kishan [id number] Mayte L Kishan Notes Date Note Type Note Provider Name and Address Organization Details Recorded Time 07/20/2024 text/html Hospitalization Contact RecordReported bypatient.Follow UpHospital: [facility]; admit date: (Please enter in format 'MM/DD/YYYY') (07/17/2024); date of discharge: (Please enter in format 'MM/DD/YYYY') (07/20/2024); date of contact: (Please enter in format 'MM/DD/YYYY') (07/20/2024)Notes:Medic are covered inpatient stay? yes Medicare LUÍS with in 48 working hours? yes High Complexity code valid on or before:July Moderate Complexity code valid on or before: July HCP on file? no MOLST on file? yes Discharge Summary available? yes 74 year old female presented to [place] [facility] on 07/16/2024 complaining of severe diarrhea and abdominal cramping on going x 4 days. Associated with, fever, chills, nausea. ED evaluation: GI panel ordered , impression: positive for C- diff.CT of abdomen and pelvis noted abnormal thickening of rectum. Patient admitted on 07/17/2024 for further medical management . Started on IVF and zosyn regimen. Symptoms improved, upon discharge patient was able to consume solids / fluids with no issues. Patient to completed additional 6 days antibiotic regimen- vancomycin 125 mg Q6h . Patient was given dose before discharge , has not yet picked script at pharmacy. Patient aware activities as tolerated, rest , push fluids , small frequent meals . Patient denies fever, nausea, vomiting, chest pain, shortness of breath. Denies issues with voiding or passing bowel. Some abdominal discomfort but tolerable. Patient compliant with discharge medication, no questions or concerns. Scheduled with PCP fir telehealth on 07/29/2024 at 2:25 pm, deferred see mid level only provider. Patient aware to call office prior to appointment with questions, concerns, change in status. Won Kelly MD [address], [address], [facility] 07/20/2024 15:57:20 07/29/2024 text/html Hospitalization Contact RecordReported bypatient.Follow UpHospital: [facility]; admit date: (Please enter in format 'MM/DD/YYY') (07/17/2024); date of discharge: (Please enter in format 'MM/DD/YYYY') (07/20/2024); date of contact: (Please enter in format 'MM/DD/YYYY') (07/20/2024)Notes:Medic are covered inpatient stay? yesMedicare LUÍS with in 48 working hours? yesHigh Complexity code valid on or before:JulyModerate Complexity code valid on or before:JulyHCP on file? noMOLST on file? yesDischarge Summary available? yes 74 year old female presented to [place] ED on 07/16/2024 complaining of severe diarrhea and abdominal cramping on going x 4 days. Associated with, fever, chills, nausea. ED evaluation: GI panel ordered , impression: positive for C- diff.CT of abdomen and pelvis noted abnormal thickening of rectum. Patient admitted on 07/17/2024 for further medical management . Started on IVF and zosyn regimen. Symptoms improved, upon discharge patient was able to consume solids / fluids with no issues. Patient to completed additional 6 days antibiotic regimen- vancomycin 125 mg Q6h . Patient was given dose before discharge , has not yet picked script at pharmacy. Patient aware activities as tolerated, rest , push fluids , small frequent meals . Patient denies fever, nausea, vomiting, chest pain, shortness of breath. Denies issues with voiding or passing bowel. Some abdominal discomfort but tolerable. Patient compliant with discharge medication, no questions or concerns. Patient aware to call office prior to appointment with questions, concerns, change in status. Won Kelly MD [address] [address], [place], [address], [facility] 07/29/2024 15:10:42 08/15/2024 text/html DiarrheaReported bypatient.Notes:Better since stopping probiotic which she started after her hospital discharge for Cdiff.HyperlipidemiaRep orted bypatient.Type of hyperlipidemia:combined Control:usually poorly controlled;not at goal Current Therapy:last cholesterol level: (223); last LDL level: (151); last triglyceride level: (123); last HDL level: (50) Compliance:compliant;no ncompliant with diet Complications:no coronary artery disease; no peripheral artery disease; no cardiovascular diseaseNotes:Current CVD risk score is 25%, intolerant to rosuvastatin.Hypertensi on F/UReported bypatient.Associated Symptoms:no dizziness; no lightheadedness; no chest pain; no shortness of breath; no palpitations; no edema Lifestyle:limiting/avoi ding salt;not exercising regularly Medications:taking medications as directed; no side effects from medicationNotes:Tolerat ing losartan and hydralazine.Osteoporosi s or OsteopeniaReported bypatient.Physical [place] history of recent fracture Medicalno history of hip fracture; no history of frequent falls; adequate intake of calcium; adequate intake of vitamin D Reported Medicationsno history of greater than 5 mg po qd prednisone for over 3 mo. duration; not currently taking high-risk medication Habitsactive lifestyle; no history of smoking; drinks of alcohol per day: 2 or lessNotes:Has not been seen by endo in awhile, not on any osteoporosis meds. Was referred for parathyroidectomy but has deferred this in light of current evaluation for suspected vulvar Ca. Won Kelly MD [address], [address], [facility] 08/15/2024 11:32:40 10/19/2024 text/html The patient pres ents with concern for a possible spider bite and evolving symptoms suggestive of cellulitis. On 10/15, she noticed itching at the right inner elbow crease and observed what she describes as two fang duarte. By the next day, the area became bright red. It remains erythematous, mildly warm, and is associated with swelling and stiffness. She has applied OTC 98% Aloe Vera Gel and cortisone cream with minimal relief. No systemic symptoms (e.g., fever, chills) reported at this time. Patient also reports heightened anxiety, possibly exacerbated by the lesion s appearance and prior complicated medication history. Pertinent History:Extensive drug allergy history, including:-Cephalospori ns (cefadroxil) allergic-Doxycycline, levofloxacin, metronidazole intolerance or adverse reactions-Hydrochloroth iazide, oxycodone severe allergies-Prior C. difficile infection following amoxicillin History of C. difficile colitis, necessitating careful antibiotic selection Ingrid Govea MD [address], [address], [facility] 10/19/2024 17:47:10 10/27/2024 text/html The patient pres ents with concern for a possible spider bite and evolving symptoms suggestive of cellulitis. On 10/15, she noticed itching at the right inner elbow crease and observed what she describes as two fang duarte. By the next day, the area became bright red. It remains erythematous, mildly warm, and is associated with swelling and stiffness. She has applied OTC 98% Aloe Vera Gel and cortisone cream with minimal relief. No systemic symptoms (e.g., fever, chills) reported at this time. Patient also reports heightened anxiety, possibly exacerbated by the lesion s appearance and prior complicated medication history. Pertinent History:Extensive drug allergy history, including:-Cephalospori ns (cefadroxil) allergic-Doxycycline, levofloxacin, metronidazole intolerance or adverse reactions-Hydrochloroth iazide, oxycodone severe allergies-Prior C. difficile infection following amoxicillin History of C. difficile colitis, necessitating careful antibiotic selection 5. - here for 1 wk f/u visittolerated abx okay - took probioticreviewed lab results c pt Mohit Sellers PA-C [address] [address], [place], [address], [facility] 10/27/2024 12:31:30 OBGyn Episode No OBEpisode recorded.
--- OUTSIDE RECORDS SUMMARY | 2024-12-13 15:26 | XMS_ITS | Encounter Summary ---
Author Organization [facility], Address [address] [address] Phone Care Team Providers Care Tester Operator Name Role Phone Won Marinelli MD Primary Care Provider [phone] Encounter Details Date Type Department Care Team (Late st Contact Info) Description 08/12/2022 Documentation Only [facility] [address] [place] [address] Santos Mcfarland MD [address] [place] [address] [place] [address] Social History Tobacco Use Types Packs/Day Years Used Date Smoking Tobacco: Former Comments Unknown Sex and Gender Information Value Date Recorded Sex Assigned at Not on file Legal Sex Female 10:13 AM EST Gender Identity Not on file Sexual Orientation Not on file documented as of this encounter Plan of Treatment Upcoming Encounters Date Type Department Care Team (Late st Contact Info) Description 06/02/2025 1:30 PM EST Office Visit [facility] [address] [place] [address] Santos Mcfarland MD [address] [place] [address] [place] [phone] documented as of this encounter Visit Diagnoses Not on filedocumented in this encounter Care Teams Tester Operator Relationship Specialty Start Date End Date Won Marinelil MD [address] [address] PCP - General Internal Medicine 04/11/20 documented as of this encounter
--- NOTE | 2024-12-13 15:30 | PC.NURSE ---
Patient is a 74-year-old female with a PMH significant for?HTN, GERD, and seasonal affective disorder who presents to the ED with sudden onset intermittent leftl LE pain. Denies any trauma. Alert and oriented. Lungs clear bilat. Respirations even and non-labored. Positive pedal pulses with no edema. Patient wearing compression stockings at this time. History of a right TKR and needs a left TKR in the future.
[2024-12-13 17:20] VITALS: BP 118/58; PULSE 51; RESP 16; TEMP 35.9; O2SAT 96
[2024-12-13 18:42] LABS: MANUAL DIFF FLAG NO
[2024-12-13 18:44] LABS: Hematocrit 38.3 % (37.0-47.0); Hemoglobin 12.5 g/dl (12.0-16.0); Imm Gran Abs Auto 0.02 X10*3/uL (0.00-0.03); Imm Gran Pct Auto 0.3 % (0.0-0.4); Lymphocytes Absolute Auto 1.7 X10*3/uL (1.2-4.9); Mean Corpuscular HGB Conc 32.6 g/dl (31.0-35.0); Mean Corpuscular Hemoglobin 29.6 pg (27.0-33.0); Mean Corpuscular Volume 90.8 fL (80.0-98.0); NRBC Abs Auto 0.000 X10*3/uL (0.0-0.012); NRBC Pct Auto 0.0 /100WBC (0.0-0.2); Platelet Count 246 X10*3/uL (160-400); Red Blood Count 4.22 X10*6/uL (4.20-5.50); White Blood Count 7.5 X10*3/uL (4.8-10.8)
[2024-12-13 19:00] LABS: Alanine Aminotransferase 23 U/L (0-31); Albumin Level 4.5 g/dL (3.5-5.0); Alkaline Phosphatase 75 U/L (39-117); Anion Gap 11 (12-20); Aspartate Amino Transferase 21 U/L (5-31); Blood Urea Nitrogen 18 mg/dL (9-16); Calcium 10.2 mg/dL (8.4-10.2); Carbon Dioxide 27 mmol/L (22-29); Chloride 111 mmol/L (96-108); Creatinine Clr Calc Pharmacy 42.6; Estimated Glomerular Filt Rate 44; Magnesium 2.3 mg/dL (1.6-2.6); Potassium 4.6 mmol/L (3.3-5.1); Sodium 144 mmol/L (135-145); Total Protein 6.8 g/dL (6.5-8.0)
--- NOTE | 2024-12-13 19:06 | ED.GENADULT ---
HPI - General Adult General Chief complaint: General Medical Stated complaint: L LOWER LEG FOOT AND TOE PAIN Time Seen by Provider: 12/13/24 19:02 Source: patient Mode of arrival: EMS Limitations: no limitations History of Present Illness ED Provider: Tiburcio PLEITEZ HPI narrative: The patient is a 74-year-old female with history of previous right TKR 3 years ago due to osteoarthritis presenting to the ED for evaluation of left knee pain which began acutely this morning. Patient reports she has been told she will also need a left knee replacement, reports she sleeps with the left leg elevated due to baseline pain. The patient reports at 04:00 she was woken by severe pain in the left knee radiating into the left foot with cramping and spasm of the left calf muscles. The patient reports she massage the area and drank some Pedialyte due to a history of low magnesium, reports symptoms began to improve however then reoccurred around 08:00. Patient reports once again she was able to massage the area with improvement in symptoms but without resolution of pain. Patient reports at 13:00 she felt the pain steadily increasing without acute spasm and activated EMS. The patient denies any recent fall or other blunt trauma, denies fever/chills, nausea, vomiting or other systemic complaint. The patient denies recent travel or history of coagulopathy. The patient states she often takes Tylenol or ibuprofen for chronic pain, did not take any of those medications today prior to coming to the ED. Related Data Home Medications ?Medication ?Instructions ?Recorded ?Confirmed ascorbic acid (vitamin C) 500 mg 1,000 mg PO DAILY 09/03/22 07/17/24 capsule doxazosin 4 mg tablet 8 mg PO BEDTIME 09/03/22 07/17/24 folic acid 800 mcg tablet 0.8 mg PO DAILY 09/03/22 07/17/24 hydralazine 50 mg tablet 50 mg PO TID 09/03/22 07/17/24 ibuprofen 800 mg tablet 800 mg PO DAILY PRN Pain 09/03/22 07/17/24 losartan 100 mg tablet 100 mg PO DAILY@0900 09/03/22 07/17/24 losartan 50 mg tablet 50 mg PO BEDTIME 09/03/22 07/17/24 magnesium 250 mg tablet 500 mg PO BEDTIME 09/03/22 07/17/24 omeprazole 20 mg capsule,delayed 20 mg PO DAILY@0630 09/03/22 07/17/24 release pyridoxine (vitamin B6) 100 mg 100 mg PO DAILY 09/03/22 07/17/24 tablet acetaminophen 500 mg tablet 1,000 mg PO BID PRN Pain 07/17/24 07/17/24 Previous Rx's ?Medication ?Instructions ?Recorded vancomycin 125 mg capsule 125 mg PO Q6H #24 caps 07/20/24 Allergies Allergy/AdvReac Type Severity Reaction Status Date / Time aspirin Allergy Intermediate Unknown Verified 12/13/24 14:04 doxycycline Allergy Intermediate Unknown Verified 12/13/24 14:04 levofloxacin Allergy Intermediate Unknown Verified 12/13/24 14:04 tramadol Allergy Intermediate Unknown Verified 12/13/24 14:04 cefadroxil Allergy Mild Unknown Verified 12/13/24 14:04 diltiazem Allergy Mild Unknown Verified 12/13/24 14:04 gabapentin Allergy Mild Unknown Verified 12/13/24 14:04 metronidazole Allergy Mild Unknown Verified 12/13/24 14:04 nifedipine Allergy Mild Unknown Verified 12/13/24 14:04 spironolactone Allergy Mild Unknown Verified 12/13/24 14:04 hydrochlorothiazide Allergy Unknown Verified 12/13/24 14:04 statins AdvReac Mild Unknown Uncoded 08/03/24 13:01 Review of Systems Review of Systems: Yes all other systems are reviewed and are negative [facility] Past Medical History Medical History (Updated 12/13/24 @ 21:22 by Tiburcio Pizano PA-C) Seasonal affective disorder GERD (gastroesophageal reflux disease) Essential hypertension Surgical History (Updated 08/03/24 @ 13:01 by Deepa Kahn) History of breast surgery Hx of cholecystectomy History of hysterectomy History of abdominal surgery Family History Family History (System 08/03/24 @ 13:01 by Deepa Kahn) Mother Lung cancer Brain aneurysm Angina pectoris Father No problems noted. Sister AML (acute myeloblastic leukemia) Sister Heart disease Lung disease Social History Social History (System 08/03/24 @ 13:01 by Deepa Kahn) Household Members: None Housing: Apartment Housing Other:: 20 stairs. No elevator Do you presently have visiting nurse or other home services: No Alcohol intake: current Alcohol intake frequency: does not drink Patient Tobacco Use Status: Never used Tobacco Smoked in Last 30 Days: No Use of substances other than those prescribed or required for medical reasons: No Advance Directives: No Advance Directives Information Provided: Yes service: No Physical Exam ED Vital Signs: Vital Signs - 24 hr 12/13/24 14:02 12/13/24 14:45 12/13/24 17:20 Temperature 97.7 F 97.1 F 96.6 F L Pulse Rate 66 59 51 Respiratory Rate 16 18 16 Blood Pressure 163/77 H 124/53 L 118/58 L Pulse Oximetry 97 95 96 Oxygen Delivery Method Room Air Room Air Room Air 12/13/24 19:33 Temperature 97.8 F Pulse Rate 68 Respiratory Rate 18 Blood Pressure 132/67 Pulse Oximetry 96 Oxygen Delivery Method Room Air BMI result Body Mass Index 35.4 CONSTITUTIONAL: The patient appears non-toxic, well nourished and in no acute distress. Vital signs as documented. HEAD: Atraumatic, normocephalic. EYES: EOMs grossly intact, pupils equal, conjunctiva clear, no exudate. ENT: Nares patent, no discharge. Airway patent, no audible stridor, visible mucosa is pink and moist without noted lesions. NECK: trachea is midline, no obvious masses or gross abnormalities. CHEST: Symmetric movement, normal appearance. LUNGS: Non-labored work of breathing. CARDIAC: No evidence of hypoperfusion. ABDOMEN: Nondistended, no obvious injury. : Deferred. EXTREMITIES: Moves all extremities spontaneously without reported pain. Exam of the left knee reveals no patellar tenderness or crepitus, no obvious swelling, no overlying erythema, ligament laxity, no pain with manipulation of the ACL, PCL, MCL, or LCL, no pain elicited with meniscal manipulation. There is positive calf tenderness and popliteal tenderness on the left, as well as tenderness of the medial left distal thigh, no lymphangitis or overlying skin color changes appreciated. No other obvious injury or deformity noted. Distal CSM is intact, 2+ DP/PT pulses, no pain out of proportion or pallor. NEURO: Alert and oriented x3, CN II-XII appear grossly intact. Cerebellar Functioning grossly intact. Speech clear and appropriate. SKIN: Warm, dry, color appropriate. No rashes or lesions noted. Medications Administered Discontinued Medications Generic Name Dose Route Start Last Admin Trade Name Freq PRN Reason Stop Dose Admin Acetaminophen 975 mg 12/13/24 20:00 12/13/24 20:58 Acetaminophen 325 Mg Tablet PO 12/13/24 20:01 975 mg ONCE ONE Administration Ibuprofen 600 mg 12/13/24 20:00 12/13/24 20:58 Ibuprofen 600 Mg Tablet PO 12/13/24 20:01 600 mg ONCE ONE Administration Medical Decision Making Medical Decision Making [facility] Narrative: 8:09 PM 12/13/2024 (Petrona PLEITEZ): The patient is a 74-year-old female with history of known osteoarthritis of the bilateral knees, status post right TKR, presenting to the ED for evaluation of atraumatic acute onset of pain and spasm of the left lower extremity from the left knee radiating into the left toes with associated cramping. The patient's exam shows no ligament or meniscal pain or laxity, distal CSM is intact, no concern for ischemic foot, no evidence of overlying erythema or induration, exam not consistent with cellulitis or other infectious process, patient flexes knee without evidence of discomfort, no concern for septic arthritis. The patient's presentation is consistent with muscle spasms, patient reports history of hypomagnesemia, however laboratory evaluation reveals no hypomagnesemia, other electrolyte abnormality, leukocytosis, significant anemia, or JEAN. The patient's exam does show tenderness of the calf, popliteal fossa, and medial left thigh, we will obtain ultrasound to rule out DVT. We will treat with Tylenol and ibuprofen. If no evidence of DVT on ultrasound patient will be discharged to follow up with PCP for orthopedic referral. 9:18 PM 12/13/2024 (Petrona PLEITEZ): Patient's ultrasound negative for DVT, we will discharge with outpatient follow up with PCP. Admission/Observation Consideration of admission/observation: Escalation of care including admission/observation considered Lab Data [facility] Lab Attestation statement: I reviewed the patient's lab results. 12/13/24 18:38 12/13/24 18:38 Labs: Lab Results 12/13/24 Range/Units 18:38 WBC 7.5 (4.8-10.8) X10*3/uL RBC 4.22 D (4.20-5.50) X10*6/uL Hgb 12.5 D (12.0-16.0) g/dl Hct 38.3 D (37.0-47.0) % MCV 90.8 (80.0-98.0) fL MCH 29.6 (27.0-33.0) pg MCHC 32.6 (31.0-35.0) g/dl RDW 12.9 (11.0-16.0) % Plt Count 246 (160-400) X10*3/uL MPV 10.0 (9.4-12.3) fL Immature Gran % (Auto) 0.3 (0.0-0.4) % Neut % (Auto) 68.8 (45-73) % Lymph % (Auto) 22.1 (20-40) % [place] % (Auto) 7.6 (2-11) % Eos % (Auto) 0.5 (0-4) % Baso % (Auto) 0.7 (0-2) % Lymph # (Auto) 1.7 (1.2-4.9) X10*3/uL [place] # (Auto) 0.6 (0.1-1.2) X10*3/uL Eos # (Auto) 0.0 (0.0-0.4) X10*3/uL Baso # (Auto) 0.1 (0.0-0.2) X10*3/uL Abs Immat Gran (auto) 0.02 (0.00-0.03) X10*3/uL Absolute Neuts (auto) 5.1 (2.0-8.3) x10*3/uL Absolute Nucleated RBC 0.000 (0.0-0.012) X10*3/uL Nucleated RBC % (auto) 0.0 (0.0-0.2) /100WBC Sodium 144 (135-145) mmol/L Potassium 4.6 D (3.3-5.1) mmol/L Chloride 111 H (96-108) mmol/L Carbon Dioxide 27 (22-29) mmol/L Anion Gap 11 L (12-20) BUN 18 H (9-16) mg/dL Creatinine 1.20 (0.5-1.4) mg/dL Estim Creat Clear Calc 42.6 Estimated GFR 44 Random Glucose 119 H (60-115) mg/dL Calcium 10.2 (8.4-10.2) mg/dL Magnesium 2.3 (1.6-2.6) mg/dL Total Bilirubin 0.7 (0.0-1.0) mg/dL AST 21 (5-31) U/L ALT 23 (0-31) U/L Alkaline Phosphatase 75 (39-117) U/L Total Protein 6.8 (6.5-8.0) g/dL Albumin 4.5 (3.5-5.0) g/dL Discharge Plan Discharge Clinical Impression: Acute pain of left knee Patient Disposition: Home, Self-Care Instructions: Arthralgia (ED), Knee Pain (ED) Additional Instructions: Thank you for choosing [facility]'s Emergency Department for your care today. Thankfully your magnesium level today was normal, and your ultrasound showed no evidence of a blood clot. Given your lack of any blunt trauma to the knee there is no concern for acute fracture. Your exam is not concerning for an infected knee joint or knee effusion. At this time there is no evidence of an acute process requiring admission to the hospital or continued ED observation, and it is safe to discharge you home. Your severe pain earlier today may have been due to muscle spasm, or an exacerbation of your chronic arthritic pain. You may take alternating (staggered) doses of ibuprofen 600mg and Tylenol 1000mg every 4 hours as needed for any additional pain. Please rest the area, and apply ice for 20 minutes every hour. We have treated you with a lidocaine patch, if you find this provides you significant relief additional patches can be purchased at any local pharmacy without a prescription. Please continue taking your regularly prescribed medications. Please follow up with your primary care physician for re-evaluation, referral to orthopedics as indicated, additional management of your symptoms, and continued preventative care. If you do not have a primary care physician, please call the [facility] at [phone] to establish a new primary care physician. While waiting to establish your new primary care physician, you can call our [facility] at [phone] for non-emergency needs. Please return to the emergency department if you develop a severe or sudden change in your symptoms, a fever over 100.4 that does not improve with Tylenol or Ibuprofen, recurrent vomiting, or any other new or worsening symptoms or concerns. Prescriptions: No Action acetaminophen 500 mg Tablet 1,000 mg PO BID PRN (Reason: Pain) vancomycin 125 mg Capsule 125 mg PO Q6H Qty: 24 0RF omeprazole 20 mg capsule,delayed release(DR/EC) 20 mg PO DAILY@0630 losartan 100 mg tablet 100 mg PO DAILY@0900 doxazosin 4 mg tablet 8 mg PO BEDTIME magnesium 250 mg tablet 500 mg PO BEDTIME Patient Comments: citrate hydralazine 50 mg tablet 50 mg PO TID ascorbic acid (vitamin C) 500 mg capsule 1,000 mg PO DAILY folic acid 800 mcg tablet 0.8 mg PO DAILY pyridoxine (vitamin B6) 100 mg tablet 100 mg PO DAILY losartan 50 mg tablet 50 mg PO BEDTIME ibuprofen 800 mg tablet 800 mg PO DAILY PRN (Reason: Pain) Referrals: Won Marinelli MD [Primary Care Provider, Medical] Clinical Impression: Acute pain of left knee Print Language: South African
[2024-12-13 19:33] VITALS: BP 132/67; PULSE 68; RESP 18; TEMP 36.6; O2SAT 96
--- NOTE | 2024-12-13 20:38 | PC.NURSE ---
pt taken to us before able to give meds. will medicate on return.
[2024-12-13] MEDS: Lidocaine 4 % Patch ADH..PATCH 1 PATCH TRANSDERMA (21:31)
[2024-12-13 21:42] VITALS: BP 128/83; PULSE 68; RESP 18; TEMP 36.6; O2SAT 96
== END 2024-12-13 21:42 | disposition home or self-care (01) ==
PROVIDERS: Physician Assistant Medical; Emergency Provider Emergency Medicine; PCP Pediatrics
DX: M25.562 Pain in left knee (principal); M79.662 Pain in left lower leg; I10 Essential (primary) hypertension; K21.9 Gastro-esophageal reflux disease without esophagitis; Z96.651 Presence of right artificial knee joint
CPT/HCPCS: 36415; 80053; 83735; 85025; 93971; 99284

== ENCOUNTER → 2024-12-13 20:00 | Outpatient (BNV) | payer MEDICARE, SELFPAY | PROVIDERS: Emergency Provider Emergency Medicine; PCP Pediatrics; Visit Provider Radiology Diagnostic Radiology | DX: M79.605 Pain in left leg (principal) | CPT/HCPCS: 93971 ==